=== PATIENT | male | born 1945 | race Caucasian/White ===

== ENCOUNTER 2016-10-29 07:27 | Day surgery (SDC) | payer MEDICARE, OTHER ==
[2016-10-29] MEDS ORDERED: Lactated Ringers 1,000 ML IV SCH (08:45)
[2016-10-29] MEDS ORDERED: Lidocaine 2% 100 MG/5 ML Syringe IVPUSH ONE (10:00)
[2016-10-29] MEDS ORDERED: Propofol 200 MG/20 ML SDV IV ONE (10:00)
[2016-10-29] MEDS ORDERED: Midazolam 1 MG/ML 2 ML SDV IV ONE (10:00)
--- NOTE | 2016-10-29 11:04 | PCM.OPNOTE ---
- General Post-Op/Procedure Note Date of Surgery/Procedure: 10/29/16 Operative Procedure(s): c scope with hot loop and cold forcep biopsy Findings: polyps asc. colon x1 distal asc. colon x4 area marked. t. colon x2 desc. colon x3 rectum x 2 Pre Op Diagnosis: hx of diverticulitis Post-Op Diagnosis: polyps. asc. colon x1. distal asc. colon x4 area marked. t. colon x2. desc. colon x3. rectum x 2 Anesthesia Technique: MAC Primary Surgeon: Roger Whitmore Anesthesia Provider: Yessenia Marcial Pathology: polyps asc. colon x1 distal asc. colon x4 area marked. t. colon x2 desc. colon x3 rectum x 2 Complications: None Condition: Good Free Text/Narrative:: see dictation
[2016-10-29 12:25] VITALS: BP 156/84
--- NOTE | 2016-10-29 17:02 | OR ---
DATE OF OPERATION: 10/29/2016 SURGEON: Roger Whitmore MD PROCEDURE PERFORMED: Colonoscopy with cold forceps and hot loop snare biopsy. PREOPERATIVE DIAGNOSIS: Personal history of diverticulitis. POSTOPERATIVE DIAGNOSIS: Multiple colon polyps as follows: 1. Proximal ascending colon x1. 2. Distal colon ascending colon x3. 3. Transverse colon x2. 4. Descending colon x3. 5. Rectal polyp x2. INDICATIONS FOR PROCEDURE: This is a 71-year-old white male, who is referred with a recent history of diverticulitis. He was offered and accepted colonoscopy. DESCRIPTION OF OPERATION: After an excellent IV sedation was administered by Anesthesia, the patient was placed in left lateral decubitus position. Digital rectal exam was performed, no marked abnormality was noted. The flexible colonoscope was inserted and advanced without difficulty to the cecum. The prep was adequate. There were some areas that we had to irrigate to be able to get an adequate view of the mucosa. The following findings were noted. Ascending colon: Proximal ascending colon, pedunculated polyp biopsied with the hot loop snare and sent for permanent. Distal ascending colon and just before the hepatic flexure: There were some 4 polyps. These were biopsied with a combination of hot loop and cold forceps biopsy. The largest of the polyps was approximately a centimeter and half. This entire area was tattooed to aid in followup examination. Transverse colon: 2 polyps encountered, biopsied with the hot loop snare and sent in one container. Descending colon: Three polyps were encountered. These were biopsied with combination of cold forceps and hot loop snare. Sigmoid: Occasional diverticula. Rectum: Multiple hyperplastic-appearing polyps were encountered, but there were two larger polyps that appeared to be adenomatous and these were biopsied as well. The colon was deflated as the scope was removed. The patient tolerated the procedure well and was taken to recovery in good condition. /[id number] /MODL
== END 2016-10-29 12:30 | disposition home or self-care (01) ==
LOC: FB.SDS 07:27
PROVIDERS: ATTEND Surgery
PROC: 0DBK8ZX Excision of Ascending Colon, Via Natural or Artificial Opening Endoscopic, Diagnostic (ICD-10-PCS; principal; 2016-10-29)
PROC: 0DBL8ZX Excision of Transverse Colon, Via Natural or Artificial Opening Endoscopic, Diagnostic (ICD-10-PCS; 2016-10-29)
PROC: 0DBM8ZX Excision of Descending Colon, Via Natural or Artificial Opening Endoscopic, Diagnostic (ICD-10-PCS; 2016-10-29)
DX: D12.2 Benign neoplasm of ascending colon (principal); D12.4 Benign neoplasm of descending colon; D12.3 Benign neoplasm of transverse colon; M19.90 Unspecified osteoarthritis, unspecified site; K21.9 Gastro-esophageal reflux disease without esophagitis; F17.200 Nicotine dependence, unspecified, uncomplicated; N40.0 Benign prostatic hyperplasia without lower urinary tract symptoms; E66.01 Morbid (severe) obesity due to excess calories; I10 Essential (primary) hypertension; Z68.30 Body mass index [BMI] 30.0-30.9, adult
CPT/HCPCS: 00902; 45385; 88305; J2250; J2704; J7120

== ENCOUNTER 2017-10-03 15:43 | Inpatient (IN) | payer MEDICARE, OTHER ==
[2017-10-03] MEDS: Sodium Chloride 0.9% 10 ML Syringe FLUSH PRN ×2 (17:30→18:49)
[2017-10-03] MEDS ORDERED: Temazepam 7.5 MG Cap PO PRN (17:48)
[2017-10-03] MEDS ORDERED: Docusate Sodium 100 MG Cap PO PRN (17:48)
[2017-10-03] MEDS ORDERED: Acetaminophen 325 MG Tab PO PRN (17:48)
[2017-10-03] MEDS ORDERED: Azithromycin 500 MG Tab PO ONE (17:54)
[2017-10-03] MEDS ORDERED: cefTRIAXone 2 GM in Sodium Chloride 0.9% 100 ML IV SCH (18:00)
--- NOTE | 2017-10-03 18:32 | PCM.HP ---
H&P History of Present Illness - General Date of Service: 10/03/17 Admit Problem/Dx: Admission Diagnosis/Problem Admission Diagnosis/Problem Community acquired pneumonia Source of Information: Patient, Old Records, Provider History Limitations: Reports: No Limitations - History of Present Illness Initial Comments - Free Text/Narative: Patient is a 72-year-old male with underlying COPD and a history of bronchitis and recurrent pneumonias who presented to the clinic today to his primary care provider, Dr. Basurto, with shortness of breath, fever, chills, cough. 3 days ago he started to have fevers chills and a cough. The cough is productive of yellow-brown phlegm. He's been more short of breath with each day. He's not been able to sleep at night. He is not congested but he is very weak in the cough is so bothersome he cannot rest. His abdominal muscles hurt from coughing so much. He was seen at the clinic today and was found to have bibasilar infiltrates on chest x-ray and was asked to admit the patient for treatment for bilateral pneumonia. He has not had any antibiotic therapy for almost 6 months. Last antibiotic was Augmentin in 05/06 and 10/04. Prior to that he hasn't been treated with oral antibiotics since 2016. No recent history of steroid use in the last 12 months. Vital signs at the clinic showed hypoxia with O2 sats in the mid 80s on room air. On his arrival here he was at 92% on room air. Influenza was negative at the clinic. White count 8.4, hemoglobin 14.7, platelets 232, sodium low at 1:30, potassium 4.4, chloride 96, CO2 22, BUN 29, creatinine 1.18. Glucose 107. Past medical history: #1 hypertension #2 emphysema/bronchitis/recurrent pneumonia with question of right lung lesion noted in [facility] EMR. #3 Morbid obesity #4 History of alcohol abuse which patient denies. #5 Cervical spine stenosis #6 Gastroesophageal reflux disease #7 BPH #8 Arthritis #9 DISH (diffuse idiopathic skeletal hyperstosis) Social history: Patient drinks 5 cans a day of beer but hasn't had anything to drink this week. He's been 5 days without drinking. No symptoms of withdrawal per patient report. He smokes one half pack of cigarettes per day. Hasn't had any cigarettes for 2 days. Is a retired construction electrician and is and lives with his in [place]. Family history: Mother at 88 from some type of cancer which required pelvic radiation and damaged her bowels so she was unable to eat. Patient's father of myocardial infarction at the age of 75. The patient had 6 brothers. One in his sleep. The other 5 are healthy. 3 healthy sisters. Abdomen Pain Score (Numeric/FACES): 8 - Related Data Allergies/Adverse Reactions: Allergies Allergy/AdvReac Type Severity Reaction Status Date / Time No Known Allergies Allergy Verified 10/03/17 17:05 Home Medications: Home Meds Albuterol [Ventolin HFA] 2 puff PO Q4H PRN 10/28/16 [History] Ibuprofen [Motrin] 400 mg PO QID PRN 10/28/16 [History] Past Medical History Cardiovascular History: Reports: Hypertension, SOB on Exertion Respiratory History: Reports: Pneumonia, Recurrent Other Respiratory History: EMPHYSEMA WITH CHRONIC BRONCHITIS, RECURRENT PNEUMONIA,SMOKING GREATER THAN 40 YRS,LESIO OF RIGHT LUNG Gastrointestinal History: Reports: Diverticulosis, GERD Other Gastrointestinal History: HX DIVERTICULITIS Genitourinary History: Reports: BPH Musculoskeletal History: Reports: Back Pain, Chronic Other Musculoskeletal History: DEGENERATIVE DISC DISEASE Neurological History: Reports: Other (See Below) Other Neuro History: little forgetful Psychiatric History: Reports: Depression, Mood Swings Other Psychiatric History: ALCOHOL ABUSE Endocrine/Metabolic History: Reports: Obesity/BMI 30+, Other (See Below) Other Endocrine/Metabolic History: enlarged thyroid Other Dermatologic History: HEMATOMA OF ABDOMINAL WALL - Past Surgical History Other HEENT Surgeries/Procedures: BIOPSY VOCAL CORDS Respiratory Surgical History: Reports: None GI Surgical History: Reports: Colonoscopy Other Male Surgeries/Procedures: BPH Endocrine Surgical History: Reports: None Social & Family History - Family History Family Medical History: Noncontributory - Tobacco Use Smoking Status *Q: Current Every Day Smoker Years of Tobacco use: 55 Packs/Tins Daily: 15 Second Hand Smoke Exposure: No - Caffeine Use Caffeine Use: Reports: Coffee Other Caffeine Use: 2 cups - Alcohol Use Days Per Week of Alcohol Use: 7 Number of Drinks Per Day: 3 Total Drinks Per Week: 21 Date of Last Drink: 10/01/17 - Recreational Drug Use Recreational Drug Use: No H&P Review of Systems - Review of Systems: Review Of Systems: See Below General: Reports: Fever, Chills, Weakness, Fatigue, Night Sweats, Decreased Appetite HEENT: Reports: No Symptoms Pulmonary: Reports: Shortness of Breath, Cough Cardiovascular: Reports: Dyspnea on Exertion Gastrointestinal: Reports: Abdominal Pain (muscles hurt from coughing.) Genitourinary: Reports: No Symptoms Musculoskeletal: Reports: No Symptoms Skin: Reports: No Symptoms Psychiatric: Reports: No Symptoms Exam - Exam Exam: See Below - Vital Signs Vital Signs: Last Vital Signs Temp 37.3 C 10/03/17 16:00 Pulse Resp 36 H 10/03/17 16:00 BP 102/70 10/03/17 16:00 Pulse Ox 92 L 10/03/17 16:00 Weight: 105.885 kg - Exam Quality Assessment: Supplemental Oxygen General: Alert, Oriented, Cooperative HEENT: PERRLA, Posterior Pharynx Clear Neck: Supple, Trachea Midline Lungs: Rhonchi (no wheezing) Cardiovascular: Regular Rate, Regular Rhythm, Normal S1, Normal S2 GI/Abdominal Exam: Normal Bowel Sounds, Soft (diffusely tender but no masses, no rebound, no guarding.) Extremities: Normal Inspection, No Pedal Edema Neuro Extensive - Mental Status: Alert, Oriented x3, Normal Cognition - Patient Data Lab Results Last 24 hrs: See above. Imaging Impressions Last 24 hrs: Chest x-ray from the clinic showed bibasilar pleural-parenchymal changes compatible with pneumonia and pleuritis appearing more severe on the right than left. Probable ASHD, COPD, rheumatoid spondylitis/DJD thoracic spine with minimal scoliosis. *Q Meaningful Use (ADM) - VTE *Q VTE Criteria *Q: - Stroke *Q Stroke Criteria *Q: - AMI *Q AMI Criteria *Q: - Problem List (1) CAP (community acquired pneumonia) SNOMED Code(s): 956332366 ICD Code: J18.9 - PNEUMONIA, UNSPECIFIED ORGANISM Status: Acute Current Visit: Yes Problem Details: We'll cover with Rocephin and azithromycin. Duonebs and supplemental oxygen. Repeat x-ray in the morning. (2) HTN (hypertension) SNOMED Code(s): 94180398 ICD Code: I10 - ESSENTIAL (PRIMARY) HYPERTENSION Status: Acute Current Visit: Yes Problem Details: Patient's blood pressure is currently borderline. I'm going to hold his antihypertensives until we see his blood pressure come up. (3) Dehydration with hyponatremia SNOMED Code(s): 54951192 ICD Code: E87.1 - HYPO-OSMOLALITY AND HYPONATREMIA Status: Acute Current Visit: Yes Problem Details: We will do a gentle normal saline rehydration. Recheck labs in a.m. (4) DVT prophylaxis SNOMED Code(s): 227430084 ICD Code: SGR9306 - Status: Acute Current Visit: Yes Problem Details: Subcutaneous Lovenox. (5) Tobacco abuse SNOMED Code(s): 002022498 ICD Code: Z72.0 - TOBACCO USE Status: Acute Current Visit: Yes Problem Details: Tobacco replacement as needed. Encourage smoking cessation. (6) Alcohol abuse SNOMED Code(s): 64166637 ICD Code: F10.10 - ALCOHOL ABUSE, UNCOMPLICATED Status: Acute Current Visit: Yes Problem Details: Monitor for signs of withdrawal. Patient has no tremors at this time and is 5 days out from his last drink per his report. Monitor. Problem List Initiated/Reviewed/Updated: Yes Orders Last 24hrs: Active Orders 24 hr Category Date Time Status Patient Status [ADT] Routine ADT 10/03/17 17:48 Active Anticoag Warfarin Education *Q [RC] DAILY Care 10/03/17 17:48 Active Height and Weight [RC] DAILY Care 10/03/17 17:48 Active Intake and Output [RC] QSHIFT Care 10/03/17 17:48 Active Notify Provider Vital Signs [RC] ASDIRECTED Care 10/03/17 17:49 Active Oxygen Therapy [RC] PRN Care 10/03/17 17:48 Active Pulse Oximetry [RC] PRN Care 10/03/17 17:49 Active RT Aerosol Therapy [RC] ASDIRECTED Care 10/03/17 17:52 Active Up With Assistance [RC] ASDIRECTED Care 10/03/17 17:48 Active VTE/DVT Education [RC] Per Unit Routine Care 10/03/17 17:48 Active Vital Signs [RC] Q4H Care 10/03/17 17:48 Active Consistent Carbohydrate Diet [DIET] Diet 10/03/17 Dinner Active Chest 1V Frontal [CR] AM Exams 10/04/17 05:11 Ordered CBC WITH AUTO DIFF [HEME] AM Lab 10/04/17 05:11 Ordered CBC WITH AUTO DIFF [HEME] Stat Lab 10/03/17 17:48 Ordered COMPREHENSIVE METABOLIC PN,CMP [CHEM] AM Lab 10/04/17 05:11 Ordered COMPREHENSIVE METABOLIC PN,CMP [CHEM] Stat Lab 10/03/17 17:48 Ordered CULTURE SPUTUM + SMEAR [RM] Stat Lab 10/03/17 17:48 Ordered Acetaminophen [Tylenol] Med 10/03/17 17:48 Active 650 mg PO Q4H PRN Albuterol/Ipratropium [DuoNeb 3.0-0.5 MG/3 ML] Med 10/03/17 21:00 Active 3 ml NEB QIDRT Azithromycin [Zithromax] Med 10/04/17 09:00 Active 250 mg PO DAILY Docusate Sodium [Colace] Med 10/03/17 17:48 Active 100 mg PO BID PRN Enoxaparin [Lovenox] Med 10/03/17 18:00 Ordered 30 mg SUBCUT Q24H Sodium Chloride 0.9% @ 75 MLS/HR(1000ml) Med 10/03/17 18:30 Ordered Sodium Chloride 0.9% [Normal Saline] 1,000 ml IV ASDIRECTED Sodium Chloride 0.9% [Saline Flush] Med 10/03/17 17:48 Active 10 ml FLUSH ASDIRECTED PRN Temazepam [Restoril] Med 10/03/17 17:48 Active 7.5 mg PO BEDTIME PRN cefTRIAXone [Rocephin] Med 10/03/17 18:30 Active 2 gm IV Q24H Antiembolic Hose [OM.PC] Per Unit Routine Oth 10/03/17 17:49 Ordered Peripheral IV Insertion Adult [OM.PC] Routine Oth 10/03/17 17:48 Ordered Sequential Compression Device [OM.PC] Per Unit Routine Oth 10/03/17 17:49 Ordered Medication Orders Acetaminophen (Tylenol) 650 mg PO Q4H PRN PRN Reason: Pain (Mild 1-3)/fever Albuterol/Ipratropium (Duoneb 3.0-0.5 Mg/3 Ml) 3 ml NEB QIDRT AMBAR Azithromycin (Zithromax) 250 mg PO DAILY AMBAR Ceftriaxone Sodium (Rocephin) 2 gm IV Q24H AMBAR Docusate Sodium (Colace) 100 mg PO BID PRN PRN Reason: Constipation Enoxaparin Sodium (Lovenox) 30 mg SUBCUT Q24H AMBAR Sodium Chloride (Normal Saline) 1,000 mls @ 75 mls/hr IV ASDIRECTED AMBAR Sodium Chloride (Saline Flush) 10 ml FLUSH ASDIRECTED PRN PRN Reason: Keep Vein Open Temazepam (Restoril) 7.5 mg PO BEDTIME PRN PRN Reason: Sleep Assessment/Plan Comment:: Discussed CODE STATUS with the patient. Patient wants everything done including CPR, shocks, chest compressions, if his heart stops beating or he would stop breathing. He would want intubation. The patient is a full code.
[2017-10-03] MEDS ORDERED: Nicotine Polacrilex 2 MG Loz BUCCAL PRN (18:40)
[2017-10-03] MEDS: cefTRIAXone 2 GM Vial IV SCH (18:49)
[2017-10-03] MEDS: Sodium Chloride 0.9% 1,000 ML IV SCH (19:12)
[2017-10-03] MEDS: Albuterol/Ipratropium 3.0-0.5 MG/3 ML Neb Soln NEB SCH (21:22)
[2017-10-03] MEDS: Enoxaparin 40 MG/0.4 ML Syringe SUBCUT SCH (21:26)
[2017-10-04] MEDS: Albuterol/Ipratropium 3.0-0.5 MG/3 ML Neb Soln NEB SCH ×4 (07:05→20:34)
[2017-10-04] MEDS: Sodium Chloride 0.9% 1,000 ML IV SCH (08:53)
[2017-10-04] MEDS: Azithromycin 250 MG Tab PO SCH (09:35)
[2017-10-04] MEDS ORDERED: Nicotine Polacrilex 2 MG Loz Box BUCCAL PRN ×2 (10:00)
--- NOTE | 2017-10-04 12:29 | PCM.PN ---
- General Info Date of Service: 10/04/17 Subjective Update: Patient is a 72-year-old male currently on hospital day #2 for community- acquired pneumonia. He feels somewhat improved. He slept until about midnight and then had a very rough night after the coughing and being awake. He is tired now and would like to take a nap. Feels his shortness of breath is about the same as yesterday. He's been coughing up a lot of phlegm. No chest pain other than with coughing. Abdominal pain with coughing as well. Still quite short of breath with exertion. Was off oxygen for a little while last night but now back on at 2 L 99% on this. - Patient Data Vitals - Most Recent: Last Vital Signs Temp 36.8 C 10/04/17 09:00 Pulse 86 10/04/17 11:07 Resp 18 10/04/17 09:00 BP 135/78 10/04/17 09:00 Pulse Ox 98 10/04/17 11:07 Weight - Most Recent: 106.594 kg I&O - Last 24 Hours: Intake & Output 10/03/17 10/04/17 10/04/17 22:59 06:59 14:59 Intake Total 1409 560 Output Total 600 700 Balance 809 -140 Lab Results Last 24 Hours: Laboratory Results - last 24 hr 10/04/17 10/04/17 Range/Units 06:15 06:15 WBC 13.9 H (4.5-12.0) X10-3/uL RBC 4.38 (4.30-5.75) x10(6)uL Hgb 13.5 (11.5-15.5) g/dL Hct 39.5 (30.0-51.3) % MCV 90.3 (80-96) fL MCH 30.8 (27.7-33.6) pg MCHC 34.1 (32.2-35.4) g/dL RDW 12.4 (11.5-15.5) % Plt Count 217 (125-369) X10(3)uL MPV 8.4 (7.4-10.4) fL Neut % (Auto) 92.4 H (46-82) % Lymph % (Auto) 4.4 L (13-37) % [place] % (Auto) 3.1 L (4-12) % Eos % (Auto) 0 L (1.0-5.0) % Baso % (Auto) 0 (0-2) % Neut # (Auto) 12.9 H (1.6-8.3) # Lymph # (Auto) 0.6 (0.6-5.0) # [place] # (Auto) 0.4 (0.0-1.3) # Eos # (Auto) 0.0 (0.0-0.8) # Baso # (Auto) 0.0 (0.0-0.2) # Sodium 132 L (135-145) mmol/L Potassium 3.9 (3.5-5.3) mmol/L Chloride 96 L (100-110) mmol/L Carbon Dioxide 27 (21-32) mmol/L BUN 30 H (7-18) mg/dL Creatinine 1.1 (0.70-1.30) mg/dL Est Cr Clr Drug Dosing 65.60 mL/min Estimated GFR (MDRD) > 60 (>60) BUN/Creatinine Ratio 27.3 H (9-20) Glucose 116 (80-116) mg/dL Calcium 8.3 L (8.6-10.2) mg/dL Total Bilirubin 0.9 (0.1-1.3) mg/dL AST 52 H (5-25) IU/L ALT 28 (12-36) U/L Alkaline Phosphatase 36 L (56-112) IU/L Total Protein 6.2 (6.0-8.0) g/dL Albumin 2.5 L (3.2-4.6) g/dL Globulin 3.7 g/dL Albumin/Globulin Ratio 0.7 Med Orders - Current: Current Medications Acetaminophen (Tylenol) 650 mg PO Q4H PRN PRN Reason: Pain (Mild 1-3)/fever Last Admin: 10/03/17 19:04 Dose: 650 mg Albuterol/Ipratropium (Duoneb 3.0-0.5 Mg/3 Ml) 3 ml NEB QIDRT [facility] Last Admin: 10/04/17 10:53 Dose: 3 ml Azithromycin (Zithromax) 250 mg PO DAILY [facility] Last Admin: 10/04/17 09:35 Dose: 250 mg Ceftriaxone Sodium (Rocephin) 2 gm IV Q24H [facility] Last Admin: 10/03/17 18:49 Dose: 2 gm Docusate Sodium (Colace) 100 mg PO BID PRN PRN Reason: Constipation Enoxaparin Sodium (Lovenox) 40 mg SUBCUT Q24H [facility] Last Admin: 10/03/17 21:26 Dose: 40 mg Sodium Chloride (Normal Saline) 1,000 mls @ 75 mls/hr IV ASDIRECTED [facility] Last Admin: 10/04/17 08:53 Dose: 75 mls/hr Melatonin (Melatonin) 3 mg PO BEDTIME [facility] Nicotine Polacrilex (Commit) 2 mg BUCCAL Q1H PRN PRN Reason: Withdrawal Symptoms Sodium Chloride (Saline Flush) 10 ml FLUSH ASDIRECTED PRN PRN Reason: Keep Vein Open Last Admin: 10/03/17 18:49 Dose: 10 ml Temazepam (Restoril) 7.5 mg PO BEDTIME PRN PRN Reason: Sleep Last Admin: 10/03/17 21:24 Dose: 7.5 mg Discontinued Medications Azithromycin (Zithromax) 500 mg PO ONETIME ONE Stop: 10/03/17 17:55 Last Admin: 10/03/17 18:48 Dose: 500 mg Ceftriaxone Sodium 2 gm/ (Sodium Chloride) 100 mls @ 200 mls/hr IV Q24H [facility] Last Admin: 10/03/17 20:39 Dose: Not Given Nicotine Polacrilex (Commit) 2 mg BUCCAL Q1H PRN PRN Reason: Withdrawal Symptoms Nicotine Polacrilex (Commit) 2 mg BUCCAL Q1H PRN PRN Reason: Withdrawal Symptoms - Exam General: Alert, Oriented, Cooperative, Mild Distress (Mild respiratory distress with activity. He becomes quite tachypneic and needs to stop and catch his breath.) Lungs: Clear to Auscultation (Lungs are much clearer to auscultation today. He has a slight grown on the left anteriorly and posteriorly. No crackles. Rhonchi from yesterday are significantly cleared. No wheezing.) Cardiovascular: Regular Rate, Regular Rhythm, No Murmurs GI/Abdominal Exam: Normal Bowel Sounds, Soft Back Exam: Normal Inspection Extremities: Normal Inspection, No Pedal Edema Skin: Warm, Dry, Intact, Other (Yesterday, on admission, he had some puffiness around the eyes and was very plethoric in the face. This is improved considerably.) Psy/Mental Status: Alert, Normal Affect - Problem List & Annotations (1) CAP (community acquired pneumonia) SNOMED Code(s): 284057764 Code(s): J18.9 - PNEUMONIA, UNSPECIFIED ORGANISM Status: Acute Current Visit: Yes Annotation/Comment:: Chest x-ray when compared to yesterday's checks x-ray shows no change. Official reading is still pending for today's. On Rocephin and azithromycin. Continue duo nebs and supplemental oxygen as needed. White count is up to 13.9 today from 8.4 yesterday. The patient is not being treated with any steroids. Low threshold for adding further antibiotic coverage. (2) HTN (hypertension) SNOMED Code(s): 06179726 Code(s): I10 - ESSENTIAL (PRIMARY) HYPERTENSION Status: Acute Current Visit: Yes Annotation/Comment:: Blood pressure is currently 110s over 70s. Continue to hold blood pressure medication. (3) Dehydration with hyponatremia SNOMED Code(s): 99471083 Code(s): E87.1 - HYPO-OSMOLALITY AND HYPONATREMIA Status: Acute Current Visit: Yes Annotation/Comment:: Labs have improved with sodium 132, BUN 30, creatinine 1.1. Lock fluids as patient is taking good oral intake. (4) DVT prophylaxis SNOMED Code(s): 331140740 Code(s): LDM8954 - Status: Acute Current Visit: Yes Annotation/Comment :: Subcutaneous Lovenox. (5) Tobacco abuse SNOMED Code(s): 372432856 Code(s): Z72.0 - TOBACCO USE Status: Acute Current Visit: Yes Annotation/Comment:: Tobacco replacement as needed. Encourage smoking cessation. (6) Alcohol abuse SNOMED Code(s): 56556603 Code(s): F10.10 - ALCOHOL ABUSE, UNCOMPLICATED Status: Acute Current Visit: Yes Annotation/Comment:: Monitor for signs of withdrawal. None currently. - Problem List Review Problem List Initiated/Reviewed/Updated: Yes - My Orders Last 24 Hours: My Active Orders 10/03/17 17:48 Patient Status [ADT] Routine Anticoag Warfarin Education *Q [RC] DAILY Height and Weight [RC] DAILY Intake and Output [RC] QSHIFT Oxygen Therapy [RC] PRN Up With Assistance [RC] ASDIRECTED VTE/DVT Education [RC] Per Unit Routine Vital Signs [RC] Q4H Acetaminophen [Tylenol] 650 mg PO Q4H PRN Docusate Sodium [Colace] 100 mg PO BID PRN Sodium Chloride 0.9% [Saline Flush] 10 ml FLUSH ASDIRECTED PRN Temazepam [Restoril] 7.5 mg PO BEDTIME PRN Peripheral IV Insertion Adult [OM.PC] Routine 10/03/17 17:49 Notify Provider Vital Signs [RC] ASDIRECTED Pulse Oximetry [RC] PRN Antiembolic Hose [OM.PC] Per Unit Routine Sequential Compression Device [OM.PC] Per Unit Routine 10/03/17 17:52 RT Aerosol Therapy [RC] ASDIRECTED 10/03/17 18:30 Sodium Chloride 0.9% [Normal Saline] 1,000 ml IV ASDIRECTED cefTRIAXone [Rocephin] 2 gm IV Q24H 10/03/17 18:40 Code Status [Resuscitation Status] Routine 10/03/17 19:20 CULTURE SPUTUM + SMEAR [RM] Stat 10/03/17 21:00 Albuterol/Ipratropium [DuoNeb 3.0-0.5 MG/3 ML] 3 ml NEB QIDRT Enoxaparin [Lovenox] 40 mg SUBCUT Q24H 10/03/17 Dinner Consistent Carbohydrate Diet [DIET] 10/04/17 05:11 Chest 2V [CR] Routine 10/04/17 07:12 IS (RT) [RT Incentive Spirometry] [RC] ASDIRECTED 10/04/17 09:00 Azithromycin [Zithromax] 250 mg PO DAILY 10/04/17 10:00 Nicotine Polacrilex [Commit] 2 mg BUCCAL Q1H PRN 10/04/17 21:00 Melatonin 3 mg PO BEDTIME - Plan Plan:: Discussed CODE STATUS with the patient. Patient wants everything done including CPR, shocks, chest compressions, if his heart stops beating or he would stop breathing. He would want intubation. The patient is a full code.
[2017-10-04] MEDS: cefTRIAXone 2 GM Vial IV SCH (18:13)
[2017-10-04] MEDS: Sodium Chloride 0.9% 10 ML Syringe FLUSH PRN (18:14)
[2017-10-04] MEDS: Melatonin 3 MG Tab PO SCH (20:35)
[2017-10-04] MEDS: Enoxaparin 40 MG/0.4 ML Syringe SUBCUT SCH (20:35)
[2017-10-05] MEDS: Albuterol/Ipratropium 3.0-0.5 MG/3 ML Neb Soln NEB SCH ×4 (07:04→20:18)
[2017-10-05] MEDS: Azithromycin 250 MG Tab PO SCH (08:58)
[2017-10-05] MEDS ORDERED: Zolpidem 5 MG Tab PO PRN (11:39)
--- NOTE | 2017-10-05 13:44 | PCM.PN ---
- General Info Date of Service: 10/05/17 Subjective Update: Patient appears significantly improved today. He's been off oxygen for most of the time overnight and this morning. Tachypnea has resolved. Sputum is clearing. He still slept very poorly last night. Would like to try another sleep aid as the melatonin did not help. No chest pain except with coughing, no abdominal pain except with coughing, no dizziness. Shortness of breath is much improved. No diarrhea. - Patient Data Vitals - Most Recent: Last Vital Signs Temp 36.8 C 10/05/17 12:00 Pulse 86 10/05/17 12:00 Resp 18 10/05/17 12:00 BP 118/78 10/05/17 12:00 Pulse Ox 96 10/05/17 12:00 Weight - Most Recent: 106.322 kg I&O - Last 24 Hours: Intake & Output 10/04/17 10/05/17 10/05/17 22:59 06:59 14:59 Intake Total 440 Output Total 850 600 Balance -850 -600 440 Lance Results Last 24 Hours: Microbiology 10/03/17 19:20 Gram Stain - Final Sputum - Expectorated Sputum Culture - Final YEAST Med Orders - Current: Current Medications Acetaminophen (Tylenol) 650 mg PO Q4H PRN PRN Reason: Pain (Mild 1-3)/fever Last Admin: 10/03/17 19:04 Dose: 650 mg Albuterol/Ipratropium (Duoneb 3.0-0.5 Mg/3 Ml) 3 ml NEB QIDRT [facility] Last Admin: 10/05/17 10:54 Dose: 3 ml Azithromycin (Zithromax) 250 mg PO DAILY [facility] Last Admin: 10/05/17 08:58 Dose: 250 mg Ceftriaxone Sodium (Rocephin) 2 gm IV Q24H [facility] Last Admin: 10/04/17 18:13 Dose: 2 gm Docusate Sodium (Colace) 100 mg PO BID PRN PRN Reason: Constipation Enoxaparin Sodium (Lovenox) 40 mg SUBCUT Q24H [facility] Last Admin: 10/04/17 20:35 Dose: 40 mg Sodium Chloride (Normal Saline) 1,000 mls @ 75 mls/hr IV ASDIRECTED [facility] Last Admin: 10/04/17 08:53 Dose: 75 mls/hr Melatonin (Melatonin) 3 mg PO BEDTIME [facility] Last Admin: 10/04/17 20:35 Dose: 3 mg Nicotine Polacrilex (Commit) 2 mg BUCCAL Q1H PRN PRN Reason: Withdrawal Symptoms Sodium Chloride (Saline Flush) 10 ml FLUSH ASDIRECTED PRN PRN Reason: Keep Vein Open Last Admin: 10/04/17 18:14 Dose: 10 ml Temazepam (Restoril) 7.5 mg PO BEDTIME PRN PRN Reason: Sleep Last Admin: 10/03/17 21:24 Dose: 7.5 mg Zolpidem Tartrate (Ambien) 5 mg PO BEDTIME PRN PRN Reason: Insomnia Discontinued Medications Azithromycin (Zithromax) 500 mg PO ONETIME ONE Stop: 10/03/17 17:55 Last Admin: 10/03/17 18:48 Dose: 500 mg Ceftriaxone Sodium 2 gm/ (Sodium Chloride) 100 mls @ 200 mls/hr IV Q24H [facility] Last Admin: 10/03/17 20:39 Dose: Not Given Nicotine Polacrilex (Commit) 2 mg BUCCAL Q1H PRN PRN Reason: Withdrawal Symptoms Nicotine Polacrilex (Commit) 2 mg BUCCAL Q1H PRN PRN Reason: Withdrawal Symptoms - Exam Quality Assessment: Supplemental Oxygen General: Alert, Oriented, Cooperative, No Acute Distress HEENT: Pupils Equal, Pupils Reactive Lungs: Clear to Auscultation (No longer having any rhonchi or groans. Still slightly diminished on the right with occasional fine crackles.) Cardiovascular: Regular Rate, Regular Rhythm, No Murmurs GI/Abdominal Exam: Normal Bowel Sounds, Soft, Tender (Diffuse muscle tenderness. ) Back Exam: Normal Inspection Extremities: No Pedal Edema Psy/Mental Status: Alert, Normal Affect, Normal Mood - Problem List & Annotations (1) CAP (community acquired pneumonia) SNOMED Code(s): 745913866 Code(s): J18.9 - PNEUMONIA, UNSPECIFIED ORGANISM Status: Acute Current Visit: Yes Annotation/Comment:: Bilateral pneumonia and a COPD patient on hospital day #3. Much improved. Need for supplemental oxygen greatly decreased. On Rocephin and azithromycin. Sputum culture was negative for bacteria, showed some yeast which was likely contaminant. If patient does not require oxygen throughout the day and night, could discharge home tomorrow with return on Friday for his last dose of IM Rocephin. Otherwise should go home on Friday. (2) HTN (hypertension) SNOMED Code(s): 81378608 Code(s): I10 - ESSENTIAL (PRIMARY) HYPERTENSION Status: Acute Current Visit: Yes Annotation/Comment:: Blood pressure is currently 110s over 70s. Continue to hold blood pressure medication. (3) Dehydration with hyponatremia SNOMED Code(s): 09716394 Code(s): E87.1 - HYPO-OSMOLALITY AND HYPONATREMIA Status: Acute Current Visit: Yes Annotation/Comment:: Resolved. (4) DVT prophylaxis SNOMED Code(s): 916353136 Code(s): KLR8140 - Status: Acute Current Visit: Yes Annotation/Comment :: Subcutaneous Lovenox. (5) Tobacco abuse SNOMED Code(s): 592637939 Code(s): Z72.0 - TOBACCO USE Status: Acute Current Visit: Yes Annotation/Comment:: Tobacco replacement as needed. Encourage smoking cessation. (6) Alcohol abuse SNOMED Code(s): 14829260 Code(s): F10.10 - ALCOHOL ABUSE, UNCOMPLICATED Status: Acute Current Visit: Yes Annotation/Comment:: Monitor for signs of withdrawal. None currently. (7) Insomnia SNOMED Code(s): 411153556 Code(s): G47.00 - INSOMNIA, UNSPECIFIED Status: Acute Current Visit: Yes Annotation/Comment:: Patient uses Tylenol PM at home. Discussed that this medication is not recommended for patients greater than 65 due to risk of falls and confusion. Patient tried melatonin last night which was unsuccessful. Recommended Ambien 5 mg tonight. - Problem List Review Problem List Initiated/Reviewed/Updated: Yes - My Orders Last 24 Hours: My Active Orders 10/04/17 21:00 Melatonin 3 mg PO BEDTIME 10/05/17 11:15 Oxygen Therapy [RC] PRN 10/05/17 11:39 Zolpidem [Ambien] 5 mg PO BEDTIME PRN 10/06/17 05:11 BASIC METABOLIC PANEL,BMP [CHEM] AM CBC WITH AUTO DIFF [HEME] AM - Plan Plan:: Discussed CODE STATUS with the patient. Patient wants everything done including CPR, shocks, chest compressions, if his heart stops beating or he would stop breathing. He would want intubation. The patient is a full code.
[2017-10-05] MEDS: Sodium Chloride 0.9% 10 ML Syringe FLUSH PRN (17:26)
[2017-10-05] MEDS: cefTRIAXone 2 GM Vial IV SCH (17:30)
[2017-10-05] MEDS: Enoxaparin 40 MG/0.4 ML Syringe SUBCUT SCH (20:19)
[2017-10-05] MEDS: Melatonin 3 MG Tab PO SCH (21:16)
[2017-10-06] MEDS: Albuterol/Ipratropium 3.0-0.5 MG/3 ML Neb Soln NEB SCH ×2 (07:11→11:05)
[2017-10-06] MEDS: Azithromycin 250 MG Tab PO SCH (08:50)
[2017-10-06 09:15] VITALS: BP 118/68
--- NOTE | 2017-10-06 12:53 | PCM.DCSUM1 ---
Discharge Summary - Hospital Course Free Text/Narrative:: Date of admission: 10/03/17 Date of discharge: 10/06/17 Admission diagnosis: bibasilar pneumonia superimposed on chronic COPD Discharge diagnosis: same History of present illness: Patient is a 72-year-old male who 3 days prior to admission started to have fevers, chills, is cough which was productive for brown yellow sputum. Worsening shortness of breath and finally presented to the emergency department where he was found to have hypoxia secondary to a bibasilar pneumonia and was admitted for supplemental oxygen, Rocephin, azithromycin, and DuoNeb's. Hospital course: See below by problem. Patient did very well throughout hospitalization. Gradually showed improvement in shortness of breath, decreased oxygen needs, improved sputum production with clearing of sputum. Sputum culture grew no bacteria, sparse yeast. On the day of discharge, patient was sitting up and dressed in the room off oxygen feeling well. No chest pain other than with cough, abdominal pain with cough, no nausea or vomiting, no diarrhea. Shortness of breath significantly improved. - Discharge Data Discharge Date: 10/06/17 Discharge Disposition: Home, Self-Care 01 Condition: Good - Discharge Diagnosis/Problem(s) (1) CAP (community acquired pneumonia) SNOMED Code(s): 154926306 ICD Code: J18.9 - PNEUMONIA, UNSPECIFIED ORGANISM Status: Acute Current Visit: Yes Problem Details: Bilateral pneumonia and a COPD patient on hospital day #4. Much improved. Patient would like to go home. He is continuing to need a little supplemental oxygen so we will send him home with oxygen therapy. Will come in tomorrow to get his Rocephin last dose. Follow-up later this week in the clinic with his primary care provider. (2) HTN (hypertension) SNOMED Code(s): 18101782 ICD Code: I10 - ESSENTIAL (PRIMARY) HYPERTENSION Status: Acute Current Visit: Yes Problem Details: Blood pressure has returned to 120s systolic off medication. Since patient isn't smoking, he may no longer require antihypertensives. We will hold until his clinic follow-up. (3) Dehydration with hyponatremia SNOMED Code(s): 38885364 ICD Code: E87.1 - HYPO-OSMOLALITY AND HYPONATREMIA Status: Acute Current Visit: Yes Problem Details: Resolved. (4) DVT prophylaxis SNOMED Code(s): 044183264 ICD Code: [id number] - Status: Acute Current Visit: Yes Problem Details: Subcutaneous Lovenox. (5) Tobacco abuse SNOMED Code(s): 651505050 ICD Code: Z72.0 - TOBACCO USE Status: Acute Current Visit: Yes Problem Details: Tobacco replacement as needed. Encourage smoking cessation. (6) Alcohol abuse SNOMED Code(s): 02334406 ICD Code: F10.10 - ALCOHOL ABUSE, UNCOMPLICATED Status: Acute Current Visit: Yes Problem Details: Recommended no alcohol on return to home until approved by his outpatient doctor. (7) Insomnia SNOMED Code(s): 132954435 ICD Code: G47.00 - INSOMNIA, UNSPECIFIED Status: Acute Current Visit: Yes Problem Details: Patient uses Tylenol PM at home. Discussed that this medication is not recommended for patients greater than 65 due to risk of falls and confusion. Will keep this in mind on discharge. - Patient Instructions Diet: Heart Healthy Diet Diet, Other: No tobacco or alcohol. Other/Special Instructions: Please follow-up with your regular doctor within 1 week. You need to come in for Rocephin injection tomorrow around 1:30 PM. - Discharge Plan Prescriptions/Med Rec: Azithromycin [Zithromax] 250 mg PO DAILY #1 tablet cefTRIAXone [Rocephin] 2 gm IJ DAILY 1 Days #1 vial Codeine/guaiFENesin [Robitussin AC] 10 ml PO QID PRN #240 liquid PRN Reason: Cough Home Medications: Home Meds Albuterol [Ventolin HFA] 2 puff PO Q4H PRN 10/28/16 [History] Aspirin 500 mg PO DAILY PRN 10/04/17 [History] Azithromycin [Zithromax] 250 mg PO DAILY #1 tablet 10/06/17 [Rx] Codeine/guaiFENesin [Robitussin AC] 10 ml PO QID PRN #240 liquid 10/06/17 [Rx] Nicotine Polacrilex [Commit] 2 mg BUCCAL Q1H PRN jos 10/06/17 [Rx] cefTRIAXone [Rocephin] 2 gm IJ DAILY 1 Days #1 vial 10/06/17 [Rx] Patient Handouts: Fall Prevention in Hospitals, Adult, Community-Acquired Pneumonia, Adult, [id number] - Discharge Summary/Plan Comment DC Time >30 min.: Yes - Patient Data Vitals - Most Recent: Last Vital Signs Temp 36.8 C 10/06/17 08:00 Pulse 76 10/06/17 11:05 Resp 18 10/06/17 08:00 BP 118/68 10/06/17 08:00 Pulse Ox 90 L 10/06/17 11:05 Weight - Most Recent: 106.594 kg I&O - Last 24 hours: Intake & Output 10/05/17 10/06/17 10/06/17 22:59 06:59 14:59 Output Total 1000 Balance -1000 Lab Results - Last 24 hrs: Laboratory Results - last 24 hr 10/06/17 10/06/17 Range/Units 06:25 06:25 WBC 9.1 (4.5-12.0) X10-3/uL RBC 4.31 (4.30-5.75) x10(6)uL Hgb 12.9 (11.5-15.5) g/dL Hct 38.7 (30.0-51.3) % MCV 89.6 (80-96) fL MCH 30.0 (27.7-33.6) pg MCHC 33.5 (32.2-35.4) g/dL RDW 13.0 (11.5-15.5) % Plt Count 261 (125-369) X10(3)uL MPV 8.8 (7.4-10.4) fL Add Manual Diff Yes Neutrophils % (Manual) 80 (46-82) % Band Neutrophils % 1 (0-6) % Lymphocytes % (Manual) 12 L (13-37) % Monocytes % (Manual) 3 L (4-12) % Eosinophils % (Manual) 4 (0-5) % Sodium 134 L (135-145) mmol/L Potassium 3.5 (3.5-5.3) mmol/L Chloride 98 L (100-110) mmol/L Carbon Dioxide 29 (21-32) mmol/L BUN 18 D (7-18) mg/dL Creatinine 0.8 (0.70-1.30) mg/dL Est Cr Clr Drug Dosing 90.20 mL/min Estimated GFR (MDRD) > 60 (>60) BUN/Creatinine Ratio 22.5 H (9-20) Glucose 111 (80-116) mg/dL Calcium 8.8 (8.6-10.2) mg/dL GIANFRANCO Results - Last 24 hrs: Microbiology 10/03/17 19:20 Gram Stain - Final Sputum - Expectorated Sputum Culture - Final YEAST Med Orders - Current: Current Medications Acetaminophen (Tylenol) 650 mg PO Q4H PRN PRN Reason: Pain (Mild 1-3)/fever Last Admin: 10/03/17 19:04 Dose: 650 mg Albuterol/Ipratropium (Duoneb 3.0-0.5 Mg/3 Ml) 3 ml NEB QIDRT [facility] Last Admin: 10/06/17 11:05 Dose: 3 ml Azithromycin (Zithromax) 250 mg PO DAILY [facility] Last Admin: 10/06/17 08:50 Dose: 250 mg Ceftriaxone Sodium (Rocephin) 2 gm IV Q24H [facility] Docusate Sodium (Colace) 100 mg PO BID PRN PRN Reason: Constipation Enoxaparin Sodium (Lovenox) 40 mg SUBCUT Q24H [facility] Last Admin: 10/05/17 20:19 Dose: 40 mg Sodium Chloride (Normal Saline) 1,000 mls @ 75 mls/hr IV ASDIRECTED [facility] Last Admin: 10/04/17 08:53 Dose: 75 mls/hr Melatonin (Melatonin) 3 mg PO BEDTIME [facility] Last Admin: 10/05/17 21:16 Dose: 3 mg Nicotine Polacrilex (Commit) 2 mg BUCCAL Q1H PRN PRN Reason: Withdrawal Symptoms Sodium Chloride (Saline Flush) 10 ml FLUSH ASDIRECTED PRN PRN Reason: Keep Vein Open Last Admin: 10/05/17 17:26 Dose: 10 ml Temazepam (Restoril) 7.5 mg PO BEDTIME PRN PRN Reason: Sleep Last Admin: 10/03/17 21:24 Dose: 7.5 mg Zolpidem Tartrate (Ambien) 5 mg PO BEDTIME PRN PRN Reason: Insomnia Last Admin: 10/06/17 00:30 Dose: 5 mg Discontinued Medications Azithromycin (Zithromax) 500 mg PO ONETIME ONE Stop: 10/03/17 17:55 Last Admin: 10/03/17 18:48 Dose: 500 mg Ceftriaxone Sodium (Rocephin) 2 gm IV Q24H [facility] Last Admin: 10/05/17 17:30 Dose: 2 gm Ceftriaxone Sodium 2 gm/ (Sodium Chloride) 100 mls @ 200 mls/hr IV Q24H [facility] Last Admin: 10/03/17 20:39 Dose: Not Given Nicotine Polacrilex (Commit) 2 mg BUCCAL Q1H PRN PRN Reason: Withdrawal Symptoms Nicotine Polacrilex (Commit) 2 mg BUCCAL Q1H PRN PRN Reason: Withdrawal Symptoms - Exam General: Reports: Alert, Oriented, Cooperative HEENT: Reports: Pupils Equal, Pupils Reactive Neck: Reports: Supple Lungs: Reports: Clear to Auscultation, Normal Respiratory Effort Cardiovascular: Reports: Regular Rate, Regular Rhythm, No Murmurs GI/Abdominal Exam: Normal Bowel Sounds, Soft, Non-Tender Back Exam: Reports: Normal Inspection Extremities: Normal Inspection, No Pedal Edema Skin: Reports: Warm, Dry, Intact Psy/Mental Status: Reports: Alert, Normal Affect, Normal Mood *Q Meaningful Use (DIS) - VTE *Q VTE Criteria *Q: - Stroke *Q Stroke Criteria *Q: - AMI *Q AMI Criteria *Q:
[2017-10-06] MEDS ORDERED: cefTRIAXone 2 GM Vial IV SCH (13:30)
--- NOTE | 2017-10-06 15:18 | CR ---
INDICATION: Hypoxia, shortness of breath. CHEST: PA and lateral views of the chest 10/04/2017 were compared with clinic films from 10/03/2017, and again reveal bibasilar pleuroparenchymal changes, compatible with pneumonia and pleuritis. Other etiology such as pulmonary infarction or even neoplasia cannot be entirely excluded. Findings should therefore be correlated clinically. The heart is enlarged. The aorta is calcified minimally in the arch. Diminished bone density is noted, compatible with osteoporosis, but should be correlated clinically. Calcification of the anterior longitudinal ligament is noted at the thoracic spine, suggesting the possibility of rheumatoid spondylitis - correlate clinically. Flattened diaphragm leaves, prominent AP diameter, and hyperaeration all suggest COPD. IMPRESSION: 1. Continued bibasilar pleuroparenchymal changes, which may be on the basis of pneumonia and pleuritis - correlate clinically. 2. COPD. 3. ASHD with cardiomegaly. 4. 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 MTDD
== END 2017-10-06 13:55 | disposition home or self-care (01) | DRG 194 ==
LOC: FB.MS 15:43
PROVIDERS: ADMIT Family Medicine; ATTEND Family Medicine
DX: J18.9 Pneumonia, unspecified organism (principal); E87.1 Hypo-osmolality and hyponatremia; J44.9 Chronic obstructive pulmonary disease, unspecified; E86.0 Dehydration; I10 Essential (primary) hypertension; R09.02 Hypoxemia; G47.00 Insomnia, unspecified; F17.210 Nicotine dependence, cigarettes, uncomplicated; E66.01 Morbid (severe) obesity due to excess calories; Z68.32 Body mass index [BMI] 32.0-32.9, adult; Z87.01 Personal history of pneumonia (recurrent); F10.10 Alcohol abuse, uncomplicated; M54.9 Dorsalgia, unspecified; G89.29 Other chronic pain; Z99.81 Dependence on supplemental oxygen; Z79.82 Long term (current) use of aspirin
CPT/HCPCS: 36415; 71046; 80048; 80053; 85025; 87070; 87205; 94150; 94640; A9270-GY; J0696; J1650; J7040; J7050; J7620

== ENCOUNTER 2017-10-07 11:57 | Inpatient (IN) | payer MEDICARE, OTHER ==
[2017-10-07] MEDS ORDERED: cefTRIAXone 2 GM Vial IM ONE (12:15)
[2017-10-07] MEDS ORDERED: Ondansetron 4 MG Tab.DIS PO PRN (12:48)
[2017-10-07] MEDS ORDERED: Zolpidem 5 MG Tab PO PRN (12:48)
[2017-10-07] MEDS ORDERED: Docusate Sodium 100 MG Cap PO PRN (12:48)
[2017-10-07] MEDS: Piperacillin/Tazobactam 3.375 GM in Sodium Chloride 0.9% 50 ML IV SCH ×2 (13:27→19:42)
[2017-10-07] MEDS: predniSONE 20 MG Tab PO SCH (13:30)
[2017-10-07] MEDS: Enoxaparin 40 MG/0.4 ML Syringe SUBCUT SCH (13:30)
--- NOTE | 2017-10-07 13:32 | PCM.HP ---
H&P History of Present Illness - General Date of Service: 10/07/17 Admit Problem/Dx: Admission Diagnosis/Problem Admission Diagnosis/Problem Community acquired bacterial pneumonia Source of Information: Patient, Old Records, Provider History Limitations: Reports: No Limitations - History of Present Illness Initial Comments - Free Text/Narative: Patient is a 72-year-old male who was discharged yesterday after 4 days of hospitalization for community-acquired pneumonia, treated with Rocephin and a sputum I's and. He was still using when necessary supplemental oxygen at the time of discharge. He refused to have oxygen at home. He was discharged home on azithromycin and to return for his last dose of Rocephin today. He felt pretty good going home until the evening. He tells me he did not have any cigarettes. He did not sleep well. He coughed all night long and just couldn't rest. Started to feel increasingly short of breath. The cough continued to get worse. He came in today to outpatient to have his Rocephin and asked if he could see me and he was so tachypneic and dyspneic and felt so poorly I felt he probably should be readmitted. He notes that he had fevers and chills last night and this morning again. Cough is nonproductive clearish phlegm. See previous H&P and discharge summary for social history, family history, further details as to the last admission. - Related Data Allergies/Adverse Reactions: Allergies Allergy/AdvReac Type Severity Reaction Status Date / Time No Known Allergies Allergy Verified 10/07/17 17:30 Home Medications: Home Meds Albuterol [Ventolin HFA] 2 puff PO Q4H PRN 10/28/16 [History] Aspirin 500 mg PO DAILY PRN 10/04/17 [History] Nicotine Polacrilex [Commit] 2 mg BUCCAL Q1H PRN jos 10/06/17 [Rx] Ibuprofen/Diphenhydramine Cit [Advil Pm Caplet] 1 tab PO BEDTIME PRN 10/07/17 [ History] Past Medical History Cardiovascular History: Reports: Hypertension, SOB on Exertion Respiratory History: Reports: Pneumonia, Recurrent Other Respiratory History: EMPHYSEMA WITH CHRONIC BRONCHITIS, RECURRENT PNEUMONIA,SMOKING GREATER THAN 40 YRS,LESIO OF RIGHT LUNG Gastrointestinal History: Reports: Diverticulosis, GERD Other Gastrointestinal History: HX DIVERTICULITIS Genitourinary History: Reports: BPH Musculoskeletal History: Reports: Back Pain, Chronic Other Musculoskeletal History: DEGENERATIVE DISC DISEASE Neurological History: Reports: Other (See Below) Other Neuro History: little forgetful Psychiatric History: Reports: Depression, Mood Swings Other Psychiatric History: ALCOHOL ABUSE Endocrine/Metabolic History: Reports: Obesity/BMI 30+, Other (See Below) Other Endocrine/Metabolic History: enlarged thyroid Other Dermatologic History: HEMATOMA OF ABDOMINAL WALL - Past Surgical History Other HEENT Surgeries/Procedures: BIOPSY VOCAL CORDS Respiratory Surgical History: Reports: None GI Surgical History: Reports: Colonoscopy Other Male Surgeries/Procedures: BPH Endocrine Surgical History: Reports: None Social & Family History - Family History Family Medical History: Noncontributory - Tobacco Use Smoking Status *Q: Current Every Day Smoker Years of Tobacco use: 55 Packs/Tins Daily: 15 Second Hand Smoke Exposure: No - Caffeine Use Caffeine Use: Reports: Coffee Other Caffeine Use: 2 cups - Alcohol Use Days Per Week of Alcohol Use: 7 Number of Drinks Per Day: 3 Total Drinks Per Week: 21 - Recreational Drug Use Recreational Drug Use: No H&P Review of Systems - Review of Systems: Review Of Systems: ROS reveals no pertinent complaints other than HPI. Exam - Exam Exam: See Below - Exam General: Alert, Oriented, Cooperative, Mild Distress HEENT: PERRLA, Conjunctiva Clear Neck: Supple Lungs: Crackles (right lower lobe, groans on the left. No rhonchi.) Cardiovascular: Normal S1, Normal S2, Irregular Rhythm GI/Abdominal Exam: Normal Bowel Sounds, Soft, Non-Tender, No Distention Extremities: Normal Inspection, No Pedal Edema Psychiatric: Alert, Normal Affect, Normal Mood - Patient Data Result Diagrams: 10/07/17 13:25 10/07/17 13:25 EKG INTERPRETATION EKG Date: 10/07/17 EKG Interpretation Comments: Indication shows atrial fibrillation with controlled rate in the 80s. No ST elevation or depression. No T-wave inversion. In chart review of our [facility] charts and the [facility] chart at the clinic I see no previous EKG for comparison. *Q Meaningful Use (ADM) - VTE *Q VTE Criteria *Q: - Stroke *Q Stroke Criteria *Q: - AMI *Q AMI Criteria *Q: - Problem List (1) CAP (community acquired pneumonia) SNOMED Code(s): 840927973 ICD Code: J18.9 - PNEUMONIA, UNSPECIFIED ORGANISM Status: Acute Current Visit: No Problem Details: Failed discharge. We'll repeat chest x-ray and lab work today. Start steroids and Zosyn IV. Low threshold for chest CT to rule out alternative etiologies. This may simply be because the patient returned to his previous smoking environment without supplemental oxygen but will need further assessment before I can determine that. (2) HTN (hypertension) SNOMED Code(s): 32695734 ICD Code: I10 - ESSENTIAL (PRIMARY) HYPERTENSION Status: Acute Current Visit: No Problem Details: Hold blood pressure meds unless SBP > 130. (3) Insomnia SNOMED Code(s): 775279546 ICD Code: G47.00 - INSOMNIA, UNSPECIFIED Status: Acute Current Visit: No Problem Details: Ambien ordered here. (4) Tobacco abuse SNOMED Code(s): 527497619 ICD Code: Z72.0 - TOBACCO USE Status: Acute Current Visit: No Problem Details: Tobacco replacement as needed. Encourage smoking cessation. (5) Atrial fibrillation SNOMED Code(s): 01497953 ICD Code: I48.91 - UNSPECIFIED ATRIAL FIBRILLATION Status: Acute Current Visit: Yes Problem Details: Unknown if new or old, but suspect old. As it is rate controlled, would suggest anticoagulation with warfarin for stroke prevention, and will start tomorrow. In interim, will continue DVT lovenox. Qualifiers: Atrial fibrillation type: chronic Qualified Code(s): I48.2 - Chronic atrial fibrillation Problem List Initiated/Reviewed/Updated: Yes Orders Last 24hrs: Active Orders 24 hr Category Date Time Status Patient Status [ADT] Routine ADT 10/07/17 12:48 Active EKG Documentation Completion [RC] ASDIRECTED Care 10/07/17 12:52 Active Height and Weight [RC] DAILY Care 10/07/17 12:48 Active Intake and Output [RC] QSHIFT Care 10/07/17 12:49 Active Notify Provider Vital Signs [RC] ASDIRECTED Care 10/07/17 12:50 Active Oxygen Therapy [RC] PRN Care 10/07/17 12:48 Active Pulse Oximetry [RC] PRN Care 10/07/17 12:50 Active RT Aerosol Therapy [RC] ASDIRECTED Care 10/07/17 12:51 Active Up With Assistance [RC] ASDIRECTED Care 10/07/17 12:48 Active VTE/DVT Education [RC] Per Unit Routine Care 10/07/17 12:48 Active Vital Signs [RC] Q4H Care 10/07/17 12:48 Active Respiratory Care Assess and Treatment [CONS] Routine Cons 10/07/17 12:48 Active Consistent Carbohydrate Diet [DIET] Diet 10/07/17 Breakfast Active Chest 2V [CR] Stat Exams 10/07/17 12:48 Taken CBC WITH AUTO DIFF [HEME] AM Lab 10/08/17 05:11 Ordered CBC WITH AUTO DIFF [HEME] Stat Lab 10/07/17 12:48 Ordered COMPREHENSIVE METABOLIC PN,CMP [CHEM] AM Lab 10/08/17 05:11 Ordered COMPREHENSIVE METABOLIC PN,CMP [CHEM] Stat Lab 10/07/17 12:48 Ordered CULTURE BLOOD [BC] Urgent Lab 10/07/17 12:52 Ordered Acetaminophen [Tylenol] Med 10/07/17 12:48 Active 650 mg PO Q4H PRN Albuterol/Ipratropium [DuoNeb 3.0-0.5 MG/3 ML] Med 10/07/17 16:00 Active 3 ml NEB QIDRT Docusate Sodium [Colace] Med 10/07/17 12:48 Active 100 mg PO BID PRN Enoxaparin [Lovenox] Med 10/07/17 14:00 Active 40 mg SUBCUT Q24H Ondansetron [Zofran ODT] Med 10/07/17 12:48 Active 4 mg PO Q4H PRN Piperacillin/Tazobactam [Zosyn] 3.375 gm Med 10/07/17 13:00 Active Sodium Chloride 0.9% [Normal Saline] 50 ml IV Q6H Sodium Chloride 0.9% [Saline Flush] Med 10/07/17 12:48 Active 10 ml FLUSH ASDIRECTED PRN Zolpidem [Ambien] Med 10/07/17 12:48 Active 5 mg PO BEDTIME PRN predniSONE Med 10/07/17 13:00 Active 40 mg PO WITHBREAKFAST Blood Culture x2 Reflex Set [OM.PC] Urgent Oth 10/07/17 12:48 Ordered Peripheral IV Insertion Adult [OM.PC] Routine Oth 10/07/17 12:48 Ordered Sequential Compression Device [OM.PC] Per Unit Routine Oth 10/07/17 12:50 Ordered Resuscitation Status Routine Resus Stat 10/07/17 12:48 Ordered EKG 12 Lead [EK] Stat Ther 10/07/17 12:48 Ordered Medication Orders Acetaminophen (Tylenol) 650 mg PO Q4H PRN PRN Reason: Pain (Mild 1-3)/fever Albuterol/Ipratropium (Duoneb 3.0-0.5 Mg/3 Ml) 3 ml NEB QIDRT AMBAR Docusate Sodium (Colace) 100 mg PO BID PRN PRN Reason: Constipation Enoxaparin Sodium (Lovenox) 40 mg SUBCUT Q24H [facility] Piperacillin Sod/Tazobactam (Sod 3.375 gm/ Sodium Chloride) 50 mls @ 100 mls/ hr IV Q6H AMBAR Ondansetron HCl (Zofran Odt) 4 mg PO Q4H PRN PRN Reason: nausea, able to take PO Prednisone (Prednisone) 40 mg PO WITHBREAKFAST AMBAR Stop: 10/12/17 13:01 Sodium Chloride (Saline Flush) 10 ml FLUSH ASDIRECTED PRN PRN Reason: Keep Vein Open Zolpidem Tartrate (Ambien) 5 mg PO BEDTIME PRN PRN Reason: Sleep Assessment/Plan Comment:: With previous admission discussed CODE STATUS and patient was a full code.
--- NOTE | 2017-10-07 14:25 | CR ---
INDICATION: Short of breath. Follow-up pneumonia. CHEST: PA and lateral views of the chest 10/07/2017, were compared with 2017, and revealed decreasing bibasilar pleuroparenchymal changes compatible with resolving pneumonia and pleuritis at the lung bases. The heart is slightly enlarged. The aorta is calcified minimally in the arch area and slightly tortuous. Evidence of rheumatoid spondylitis and demineralization compatible with osteoporosis is also again noted. Also noted is evidence of COPD. IMPRESSION: 1. Continued bilateral pleural effusions and pneumonia - pneumonia and pleuritis, but improved compared with the previous examination of 10/04/2017. 2. COPD. 3. ASHD. 4. Osteoporosis is suggested - correlate clinically. 5. 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 MTDD
[2017-10-07] MEDS: Sodium Chloride 0.9% 10 ML Syringe FLUSH PRN (14:26)
[2017-10-07] MEDS: Acetaminophen 325 MG Tab PO PRN (14:26)
[2017-10-07] MEDS: Albuterol/Ipratropium 3.0-0.5 MG/3 ML Neb Soln NEB SCH ×2 (15:33→21:28)
[2017-10-07] MEDS: Codeine/guaiFENesin 100-10 MG/5 ML Syrup 5 ML Cup PO PRN (21:36)
[2017-10-08] MEDS: Piperacillin/Tazobactam 3.375 GM in Sodium Chloride 0.9% 50 ML IV SCH ×4 (00:15→18:51)
[2017-10-08] MEDS: Sodium Chloride 0.9% 10 ML Syringe FLUSH PRN ×2 (06:32→18:51)
[2017-10-08] MEDS: Albuterol/Ipratropium 3.0-0.5 MG/3 ML Neb Soln NEB SCH ×4 (07:10→21:13)
[2017-10-08] MEDS: predniSONE 20 MG Tab PO SCH (08:00)
[2017-10-08] MEDS ORDERED: Warfarin Sliding Scale PO SCH (08:00)
[2017-10-08] MEDS ORDERED: Iopamidol 755 Mg/ML 100 ML Bottle IV ONE (11:57)
--- NOTE | 2017-10-08 12:52 | PCM.PN ---
- General Info Date of Service: 10/08/17 Subjective Update: Patient feels very well today. Shortness of breath is still significant tachycardia with activity. He gets very dyspneic with exertion. He took Robitussin-AC last night and had a great night's sleep. He's continuing to require supplemental oxygen but not using it. No chest pain, no nausea or vomiting, no diarrhea from the antibiotic. Continues on Zosyn day 2. Started on warfarin today for atrial fibrillation. - Patient Data Vitals - Most Recent: Last Vital Signs Temp 36.4 C 10/08/17 07:55 Pulse 81 10/08/17 07:55 Resp 24 H 10/08/17 07:55 BP 138/75 10/08/17 07:55 Pulse Ox 94 L 10/08/17 10:10 Weight - Most Recent: 106.05 kg I&O - Last 24 Hours: Intake & Output 10/07/17 10/08/17 10/08/17 22:59 06:59 14:59 Intake Total 1050 350 Output Total 800 575 Balance 250 -225 Lab Results Last 24 Hours: Laboratory Results - last 24 hr 10/07/17 10/07/17 10/08/17 Range/Units 13:25 13:25 06:50 WBC 10.5 7.3 (4.5-12.0) X10-3/uL RBC 4.52 4.58 (4.30-5.75) x10(6)uL Hgb 13.5 13.5 (11.5-15.5) g/dL Hct 40.5 41.2 (30.0-51.3) % MCV 89.5 89.9 (80-96) fL MCH 29.8 29.4 (27.7-33.6) pg MCHC 33.3 32.6 (32.2-35.4) g/dL RDW 12.6 12.6 (11.5-15.5) % Plt Count 310 334 (125-369) X10(3)uL MPV 8.2 8.2 (7.4-10.4) fL Neut % (Auto) 78.0 70.3 (46-82) % Lymph % (Auto) 7.6 L 16.0 (13-37) % Hancock % (Auto) 11.2 12.8 H (4-12) % Eos % (Auto) 2 1 (1.0-5.0) % Baso % (Auto) 1 0 (0-2) % Neut # (Auto) 8.2 5.1 (1.6-8.3) # Lymph # (Auto) 0.8 1.2 (0.6-5.0) # Hancock # (Auto) 1.2 0.9 (0.0-1.3) # Eos # (Auto) 0.2 0.1 (0.0-0.8) # Baso # (Auto) 0.1 0.0 (0.0-0.2) # PT (8.7-11.1) INR (0.89-1.13) Sodium 134 L (135-145) mmol/L Potassium 3.9 (3.5-5.3) mmol/L Chloride 96 L (100-110) mmol/L Carbon Dioxide 28 (21-32) mmol/L BUN 16 (7-18) mg/dL Creatinine 0.8 (0.70-1.30) mg/dL Est Cr Clr Drug Dosing TNP Estimated GFR (MDRD) > 60 (>60) BUN/Creatinine Ratio 20.0 (9-20) Glucose 149 H (80-116) mg/dL Calcium 9.0 (8.6-10.2) mg/dL Total Bilirubin 0.4 (0.1-1.3) mg/dL AST 21 D (5-25) IU/L ALT 36 D (12-36) U/L Alkaline Phosphatase 63 (56-112) IU/L Total Protein 6.9 (6.0-8.0) g/dL Albumin 2.8 L (3.2-4.6) g/dL Globulin 4.1 g/dL Albumin/Globulin Ratio 0.7 10/08/17 10/08/17 Range/Units 06:50 06:50 WBC (4.5-12.0) X10-3/uL RBC (4.30-5.75) x10(6)uL Hgb (11.5-15.5) g/dL Hct (30.0-51.3) % MCV (80-96) fL MCH (27.7-33.6) pg MCHC (32.2-35.4) g/dL RDW (11.5-15.5) % Plt Count (125-369) X10(3)uL MPV (7.4-10.4) fL Neut % (Auto) (46-82) % Lymph % (Auto) (13-37) % Hancock % (Auto) (4-12) % Eos % (Auto) (1.0-5.0) % Baso % (Auto) (0-2) % Neut # (Auto) (1.6-8.3) # Lymph # (Auto) (0.6-5.0) # Hancock # (Auto) (0.0-1.3) # Eos # (Auto) (0.0-0.8) # Baso # (Auto) (0.0-0.2) # PT 10.8 (8.7-11.1) INR 1.07 (0.89-1.13) Sodium 136 (135-145) mmol/L Potassium 4.0 (3.5-5.3) mmol/L Chloride 98 L (100-110) mmol/L Carbon Dioxide 30 (21-32) mmol/L BUN 14 (7-18) mg/dL Creatinine 0.7 (0.70-1.30) mg/dL Est Cr Clr Drug Dosing 99.94 Estimated GFR (MDRD) > 60 (>60) BUN/Creatinine Ratio 20.0 (9-20) Glucose 125 H (80-116) mg/dL Calcium 9.0 (8.6-10.2) mg/dL Total Bilirubin 0.4 (0.1-1.3) mg/dL AST 16 D (5-25) IU/L ALT 33 (12-36) U/L Alkaline Phosphatase 55 L (56-112) IU/L Total Protein 6.8 (6.0-8.0) g/dL Albumin 2.7 L (3.2-4.6) g/dL Globulin 4.1 g/dL Albumin/Globulin Ratio 0.7 Med Orders - Current: Current Medications Acetaminophen (Tylenol) 650 mg PO Q4H PRN PRN Reason: Pain (Mild 1-3)/fever Last Admin: 10/07/17 14:26 Dose: 650 mg Albuterol/Ipratropium (Duoneb 3.0-0.5 Mg/3 Ml) 3 ml NEB QIDRT [facility] Last Admin: 10/08/17 10:58 Dose: 3 ml Docusate Sodium (Colace) 100 mg PO BID PRN PRN Reason: Constipation Enoxaparin Sodium (Lovenox) 40 mg SUBCUT Q24H [facility] Last Admin: 10/07/17 13:30 Dose: 40 mg Guaifenesin/Codeine Phosphate (Robitussin Ac) 5 ml PO Q4H PRN PRN Reason: Cough Last Admin: 10/07/17 21:36 Dose: 5 ml Piperacillin Sod/Tazobactam (Sod 3.375 gm/ Sodium Chloride) 50 mls @ 100 mls/ hr IV Q6H [facility] Last Admin: 10/08/17 06:32 Dose: 100 mls/hr Ondansetron HCl (Zofran Odt) 4 mg PO Q4H PRN PRN Reason: nausea, able to take PO Prednisone (Prednisone) 40 mg PO WITHBREAKFAST [facility] Stop: 10/12/17 13:01 Last Admin: 10/08/17 08:00 Dose: 40 mg Sodium Chloride (Saline Flush) 10 ml FLUSH ASDIRECTED PRN PRN Reason: Keep Vein Open Last Admin: 10/08/17 06:32 Dose: 10 ml Warfarin Sodium (Coumadin) 5 mg PO DAILY@1600 [facility] Stop: 10/08/17 16:01 Warfarin Sodium (Coumadin Sliding Scale) 0 each PO ASDIRECTED [facility] Zolpidem Tartrate (Ambien) 5 mg PO BEDTIME PRN PRN Reason: Sleep Discontinued Medications Iopamidol (Isovue-370 (76%)) 100 ml IV . DIRECTED ONE Stop: 10/08/17 11:58 Last Admin: 10/08/17 12:22 Dose: 79 ml - Exam General: Alert, Oriented, Cooperative, No Acute Distress HEENT: Pupils Equal, Pupils Reactive Neck: Supple Lungs: Clear to Auscultation, Other (Although the patient's lungs are clear to auscultation and he has good breath sounds today, he still gets extremely tachypneic with any exertion, including leaning forward for exam.) Cardiovascular: Regular Rate, No Murmurs, Irregular Rhythm GI/Abdominal Exam: Normal Bowel Sounds, Soft, Non-Tender, No Distention Extremities: Pedal Edema (Trace pedal edema.) - Problem List & Annotations (1) CAP (community acquired pneumonia) SNOMED Code(s): 144696549 Code(s): J18.9 - PNEUMONIA, UNSPECIFIED ORGANISM Status: Acute Current Visit: No Annotation/Comment:: Lungs are almost completely clear of previous rhonchi and rales but patient continues to be very dyspneic and tachypneic. I'm going to get a CTA to rule out PE and hidden infiltrate, fluid overload, and patient continues on Zosyn day #2 and prednisone. DuoNeb's and supplemental oxygen. (2) HTN (hypertension) SNOMED Code(s): 44283129 Code(s): I10 - ESSENTIAL (PRIMARY) HYPERTENSION Status: Acute Current Visit: No Annotation/Comment:: Restart lisinopril. (3) Insomnia SNOMED Code(s): 437337314 Code(s): G47.00 - INSOMNIA, UNSPECIFIED Status: Acute Current Visit: No Annotation/Comment:: Ambien ordered here. (4) Tobacco abuse SNOMED Code(s): 509436666 Code(s): Z72.0 - TOBACCO USE Status: Acute Current Visit: No Annotation /Comment:: Tobacco replacement as needed. Encourage smoking cessation. (5) Atrial fibrillation SNOMED Code(s): 39604350 Code(s): I48.91 - UNSPECIFIED ATRIAL FIBRILLATION Status: Acute Current Visit: Yes Qualifiers: Atrial fibrillation type: chronic Qualified Code(s): I48.2 - Chronic atrial fibrillation Annotation/Comment:: Unknown if new or old, but suspect old. On DVT prevention dose Lovenox. Start warfarin today. - Problem List Review Problem List Initiated/Reviewed/Updated: Yes - My Orders Last 24 Hours: My Active Orders 10/07/17 12:48 Patient Status [ADT] Routine Height and Weight [RC] 06 Oxygen Therapy [RC] PRN Up With Assistance [RC] 09,13,17,21 Vital Signs [RC] 00,04,08,12,16,20 Respiratory Care Assess and Treatment [CONS] Routine Acetaminophen [Tylenol] 650 mg PO Q4H PRN Docusate Sodium [Colace] 100 mg PO BID PRN Ondansetron [Zofran ODT] 4 mg PO Q4H PRN Sodium Chloride 0.9% [Saline Flush] 10 ml FLUSH ASDIRECTED PRN Zolpidem [Ambien] 5 mg PO BEDTIME PRN Blood Culture x2 Reflex Set [OM.PC] Urgent Peripheral IV Insertion Adult [OM.PC] Routine Resuscitation Status Routine EKG 12 Lead [EK] Stat 10/07/17 12:49 Intake and Output [RC] 06,14,22 10/07/17 12:50 Notify Provider Vital Signs [RC] ASDIRECTED Pulse Oximetry [RC] PRN Sequential Compression Device [OM.PC] Per Unit Routine 10/07/17 12:51 RT Aerosol Therapy [RC] ASDIRECTED 10/07/17 13:00 Piperacillin/Tazobactam [Zosyn] 3.375 gm Sodium Chloride 0.9% [Normal Saline] 50 ml IV Q6H predniSONE 40 mg PO WITHBREAKFAST 10/07/17 13:25 CULTURE BLOOD [BC] Urgent 10/07/17 14:00 Enoxaparin [Lovenox] 40 mg SUBCUT Q24H 10/07/17 16:00 Albuterol/Ipratropium [DuoNeb 3.0-0.5 MG/3 ML] 3 ml NEB QIDRT 10/07/17 17:17 Codeine/guaiFENesin [Robitussin AC] 5 ml PO Q4H PRN 10/07/17 17:48 Pharmacy Consult [Consult to Pharmacy] [CONS] Routine Warfarin Coumadin Justification [AST] Click to Edit 10/08/17 08:00 Warfarin Sliding Scale [Coumadin Sliding Scale] See Dose Instructions PO ASDIRECTED 10/08/17 11:44 Ang Chest [CT] Urgent 10/08/17 16:00 Warfarin [Coumadin] 5 mg PO DAILY@1600 10/09/17 05:11 INR,PT,PROTHROMBIN TIME [COAG] AM 10/10/17 06:00 INR,PT,PROTHROMBIN TIME [COAG] DAILY 10/11/17 06:00 INR,PT,PROTHROMBIN TIME [COAG] DAILY 10/12/17 06:00 INR,PT,PROTHROMBIN TIME [COAG] DAILY 10/13/17 06:00 INR,PT,PROTHROMBIN TIME [COAG] DAILY 10/14/17 06:00 INR,PT,PROTHROMBIN TIME [COAG] DAILY 10/15/17 06:00 INR,PT,PROTHROMBIN TIME [COAG] DAILY 10/16/17 06:00 INR,PT,PROTHROMBIN TIME [COAG] DAILY 10/17/17 06:00 INR,PT,PROTHROMBIN TIME [COAG] DAILY - Plan Plan:: With previous admission discussed CODE STATUS and patient was a full code.
[2017-10-08] MEDS: Lisinopril 10 MG Tab PO SCH (14:35)
[2017-10-08] MEDS: Enoxaparin 40 MG/0.4 ML Syringe SUBCUT SCH (14:35)
[2017-10-08] MEDS ORDERED: Warfarin 5 MG Tab PO SCH (16:00)
[2017-10-08] MEDS: Codeine/guaiFENesin 100-10 MG/5 ML Syrup 5 ML Cup PO PRN (21:16)
[2017-10-09] MEDS: Piperacillin/Tazobactam 3.375 GM in Sodium Chloride 0.9% 50 ML IV SCH ×3 (01:19→12:32)
[2017-10-09] MEDS: Sodium Chloride 0.9% 10 ML Syringe FLUSH PRN ×2 (01:21→06:03)
[2017-10-09] MEDS: Albuterol/Ipratropium 3.0-0.5 MG/3 ML Neb Soln NEB SCH ×2 (07:31→11:10)
[2017-10-09] MEDS: Lisinopril 10 MG Tab PO SCH (08:20)
[2017-10-09] MEDS: predniSONE 20 MG Tab PO SCH (08:20)
[2017-10-09] MEDS: Acetaminophen 325 MG Tab PO PRN (08:20)
[2017-10-09] MEDS ORDERED: Warfarin 5 MG Tab PO SCH (11:00)
--- NOTE | 2017-10-09 11:29 | PCM.DCSUM1 ---
Discharge Summary - Hospital Course Free Text/Narrative:: Date of admission: 10/07/17 Date of discharge: 10/09/17 Admission diagnosis: Bibasilar community-acquired pneumonia with recent admission 10/03/17 and discharged on 10/06/17 now with recurrent shortness of breath and hypoxia. Discharge diagnosis: Same Consults: None Procedures: #1 chest x-ray showed improved bibasilar pneumonia on admission. #2 CTA showed no evidence of pulmonary thromboembolism or CHF. Pneumonia identified within the right lower lobe and to a lesser degree within the posterior basal segment left lower lobe. Underlying COPD/emphysema and chronic bronchitis changes. History of present illness: The patient is a 72-year-old male who presented on with a bibasilar pneumonia and COPD exacerbation. He was treated with azithromycin and Rocephin as well as duo nebs for 4 days of therapy. He was discharged home and was told he should take home oxygen but declined. He went home and did well throughout the day but in the evening became increasingly shortness of breath overnight with sleep and could barely rest. He came in the next morning for his Rocephin injection in the emergency department and I saw him there very tachypneic and recommended reassessment. After reevaluating decided to readmit. Hospital course by problem: #1 bibasilar community-acquired pneumonia failing recent community-acquired pneumonia treatment. Patient was started on Zosyn. Did very well on this. Lungs cleared completely and CT results as above. Will be discharged home on 7 more days of Augmentin therapy and oral prednisone. #2 hypertension. Patient's home antihypertensives were able to be started as blood pressure rebounded between his discharge and admission. #3 tobacco abuse. Patient denied restarting smoking between his discharge and admission. Recommend continued abstinence. #4 atrial fibrillation which was diagnosed on 10/07/17 with EKG. Had not had any EKG previously. Was rate controlled. Suspect this is chronic and not picked up previously as patient does not have a palpable irregularity or audible irregularity on exam with this. Anticoagulated with warfarin and will continue on warfarin anticoagulation through the Coumadin clinic at [place]. - Discharge Data Discharge Date: 10/09/17 Discharge Disposition: Home, Self-Care 01 Condition: Good - Discharge Diagnosis/Problem(s) (1) CAP (community acquired pneumonia) SNOMED Code(s): 999320333 ICD Code: J18.9 - PNEUMONIA, UNSPECIFIED ORGANISM Status: Acute Current Visit: No Problem Details: Responded well to Zosyn. CTA showed no pulmonary embolism or CHF. He did have a right lower lobe and posterior basal segment left lower lobe infiltrate. Underlying COPD/emphysema and chronic bronchitis changes. We'll discharge home today on Augmentin for another 7 days of therapy. Recommended probiotic to prevent diarrhea. Follow-up with primary care provider in one week or less. (2) HTN (hypertension) SNOMED Code(s): 20519273 ICD Code: I10 - ESSENTIAL (PRIMARY) HYPERTENSION Status: Acute Current Visit: No Problem Details: May restart home meds as previous. (3) Insomnia SNOMED Code(s): 234537041 ICD Code: G47.00 - INSOMNIA, UNSPECIFIED Status: Acute Current Visit: No Problem Details: Patient aware of Tylenol PM risk at home. (4) Tobacco abuse SNOMED Code(s): 765571693 ICD Code: Z72.0 - TOBACCO USE Status: Acute Current Visit: No Problem Details: Tobacco replacement as needed. Encourage smoking cessation. (5) Atrial fibrillation SNOMED Code(s): 76026343 ICD Code: I48.91 - UNSPECIFIED ATRIAL FIBRILLATION Status: Acute Current Visit: Yes Problem Details: Likely old. Patient was started on warfarin and will follow up with the Coumadin clinic. Qualifiers: Atrial fibrillation type: chronic Qualified Code(s): I48.2 - Chronic atrial fibrillation - Patient Summary/Data Consults: Consultations 10/07/17 12:48 Respiratory Care Assess and Treatment [CONS] Routine Comment: Physician Instructions: 10/07/17 17:48 Pharmacy Consult [Consult to Pharmacy] [CONS] Routine Comment: Physician Instructions: Quantity: - Patient Instructions Diet: Heart Healthy Diet Activity: Cough & Deep Breathe, Rest and Relax Today - Discharge Plan Prescriptions/Med Rec: Amoxicillin/Clavulanate K [Augmentin 875-125 MG] 1 tab PO BID #15 tablet Codeine/guaiFENesin [Robitussin AC] 5 ml PO Q4H PRN #120 ml PRN Reason: Cough predniSONE [Deltasone] 40 mg PO DAILY 2 Days #4 tablet Warfarin [Coumadin] 5 mg PO DAILY #30 tablet Home Medications: Home Meds Albuterol [Ventolin HFA] 2 puff PO Q4H PRN 10/28/16 [History] Nicotine Polacrilex [Commit] 2 mg BUCCAL Q1H PRN jos 10/06/17 [Rx] Amoxicillin/Clavulanate K [Augmentin 875-125 MG] 1 tab PO BID #15 tablet [Rx] Codeine/guaiFENesin [Robitussin AC] 5 ml PO Q4H PRN #120 ml 10/09/17 [Rx] Lisinopril [Prinivil] 10 mg PO DAILY tablet 10/09/17 [Rx] Warfarin [Coumadin] 5 mg PO DAILY #30 tablet 10/09/17 [Rx] predniSONE [Deltasone] 40 mg PO DAILY 2 Days #4 tablet 10/09/17 [Rx] Patient Handouts: Vitamin K Foods and Warfarin, Shortness of Breath, Adult, [id number], What You Need to Know About Warfarin, Warfarin tablets, Home Oxygen Use, Adult, Atrial Fibrillation, Atrial Fibrillation, [id number], Community-Acquired Pneumonia, Adult, Oximetry, Community-Acquired Pneumonia, Adult, [id number]-Lteb - Discharge Summary/Plan Comment DC Time >30 min.: Yes - General Info Date of Service: 10/09/17 Subjective Update: The day of discharge, patient was feeling very well. He was ready for discharge. No chest pain, no shortness of breath, no nausea, no vomiting. No diarrhea. Had had a little bit of blood from his nose on the right but not a true nosebleed. - Patient Data Vitals - Most Recent: Last Vital Signs Temp 36.6 C 10/09/17 08:00 Pulse 87 10/09/17 08:00 Resp 18 10/09/17 08:00 BP 132/85 10/09/17 08:20 Pulse Ox 92 L 10/09/17 08:00 Weight - Most Recent: 106.821 kg I&O - Last 24 hours: Intake & Output 10/08/17 10/09/17 10/09/17 22:59 06:59 14:59 Intake Total 1550 255 Output Total 1340 Balance 210 255 Lab Results - Last 24 hrs: Laboratory Results - last 24 hr 10/09/17 Range/Units 05:50 PT 11.1 (8.7-11.1) INR 1.10 (0.89-1.13) GIANFRANCO Results - Last 24 hrs: Microbiology 10/07/17 13:25 Aerobic Blood Culture - Preliminary Blood - Venous NO GROWTH AFTER 1 DAY Anaerobic Blood Culture - Preliminary NO GROWTH AFTER 1 DAY Med Orders - Current: Current Medications Acetaminophen (Tylenol) 650 mg PO Q4H PRN PRN Reason: Pain (Mild 1-3)/fever Last Admin: 10/09/17 08:20 Dose: 650 mg Albuterol/Ipratropium (Duoneb 3.0-0.5 Mg/3 Ml) 3 ml NEB QIDRT [facility] Last Admin: 10/09/17 11:10 Dose: 3 ml Docusate Sodium (Colace) 100 mg PO BID PRN PRN Reason: Constipation Enoxaparin Sodium (Lovenox) 40 mg SUBCUT Q24H [facility] Last Admin: 10/08/17 14:35 Dose: 40 mg Guaifenesin/Codeine Phosphate (Robitussin Ac) 5 ml PO Q4H PRN PRN Reason: Cough Last Admin: 10/08/17 21:16 Dose: 5 ml Piperacillin Sod/Tazobactam (Sod 3.375 gm/ Sodium Chloride) 50 mls @ 100 mls/ hr IV Q6H [facility] Last Admin: 10/09/17 06:02 Dose: 100 mls/hr Lisinopril (Prinivil) 10 mg PO DAILY [facility] Last Admin: 10/09/17 08:20 Dose: 10 mg Ondansetron HCl (Zofran Odt) 4 mg PO Q4H PRN PRN Reason: nausea, able to take PO Prednisone (Prednisone) 40 mg PO WITHBREAKFAST [facility] Stop: 10/12/17 13:01 Last Admin: 10/09/17 08:20 Dose: 40 mg Sodium Chloride (Saline Flush) 10 ml FLUSH ASDIRECTED PRN PRN Reason: Keep Vein Open Last Admin: 10/09/17 06:03 Dose: 10 ml Warfarin Sodium (Coumadin Sliding Scale) 0 each PO ASDIRECTED [facility] Warfarin Sodium (Coumadin) 5 mg PO 10/09/17@1100 [facility] Stop: 10/09/17 12:00 Zolpidem Tartrate (Ambien) 5 mg PO BEDTIME PRN PRN Reason: Sleep Discontinued Medications Iopamidol (Isovue-370 (76%)) 100 ml IV . DIRECTED ONE Stop: 10/08/17 11:58 Last Admin: 10/08/17 12:22 Dose: 79 ml Warfarin Sodium (Coumadin) 5 mg PO DAILY@1600 [facility] Stop: 10/08/17 16:01 Last Admin: 10/08/17 15:57 Dose: 5 mg - Exam Quality Assessment: Reports: Supplemental Oxygen General: Reports: Alert, Oriented, Cooperative, No Acute Distress HEENT: Reports: Pupils Equal, Pupils Reactive Neck: Reports: Supple Lungs: Reports: Clear to Auscultation, Normal Respiratory Effort (Lungs are completely clear with no wheezes, rhonchi or rales.) Cardiovascular: Reports: Regular Rate (Heart sounds regular today.), Regular Rhythm, No Murmurs GI/Abdominal Exam: Normal Bowel Sounds, Soft, Non-Tender, No Distention Back Exam: Reports: Normal Inspection Extremities: No Pedal Edema Skin: Reports: Warm, Dry, Intact Psy/Mental Status: Reports: Alert, Normal Affect, Normal Mood *Q Meaningful Use (DIS) - VTE *Q VTE Criteria *Q: - Stroke *Q Stroke Criteria *Q: - AMI *Q AMI Criteria *Q:
[2017-10-09 11:44] VITALS: BP 137/84
== END 2017-10-09 13:10 | disposition home or self-care (01) | DRG 190 ==
LOC: FB.EDOUT 11:57 → FB.MS 12:12 → EDSTATUS 12:12
PROVIDERS: ADMIT Family Medicine; ATTEND Family Medicine
DX: J44.0 Chronic obstructive pulmonary disease with (acute) lower respiratory infection (principal); J18.9 Pneumonia, unspecified organism; F17.210 Nicotine dependence, cigarettes, uncomplicated; J44.1 Chronic obstructive pulmonary disease with (acute) exacerbation; Z87.01 Personal history of pneumonia (recurrent); R09.02 Hypoxemia; I10 Essential (primary) hypertension; I48.2 Chronic atrial fibrillation; F10.10 Alcohol abuse, uncomplicated; M54.9 Dorsalgia, unspecified; G89.29 Other chronic pain; G47.00 Insomnia, unspecified; N40.0 Benign prostatic hyperplasia without lower urinary tract symptoms; Z79.82 Long term (current) use of aspirin; Z79.01 Long term (current) use of anticoagulants; Z79.52 Long term (current) use of systemic steroids
CPT/HCPCS: 36415; 71046; 71275; 80053; 85025; 85610; 87040; 93005; 94150; 94640; A9270-GY; J1650; J2543; J7050; J7620; Q9967

== ENCOUNTER 2018-10-20 06:20 | Day surgery (SDC) | payer MEDICARE, OTHER ==
[2018-10-20] MEDS ORDERED: Midazolam 1 MG/ML 2 ML SDV IV ONE (06:21)
[2018-10-20] MEDS ORDERED: Propofol 200 MG/20 ML SDV IV ONE (06:21)
[2018-10-20] MEDS ORDERED: Lactated Ringers 1,000 ML IV SCH (06:45)
--- NOTE | 2018-10-20 08:53 | PCM.OPNOTE ---
- General Post-Op/Procedure Note Date of Surgery/Procedure: 10/20/18 Operative Procedure(s): c scope with bx Findings: ascending colon and cecum 8 polyps Transverse colon 7 polyps descending colon 2 polyps rectum 3 polyps Pre Op Diagnosis: hx of colon polyp s Post-Op Diagnosis: ascending colon and cecum 8 polyps. Transverse colon 7 polyps. descending colon 2 polyps. rectum 3 polyps Anesthesia Technique: Moderate Sedation Primary Surgeon: Roger Whitmore Anesthesia Provider: Leisa Tellez Pathology: ascending colon and cecum 8 polyps Transverse colon 7 polyps descending colon 2 polyps rectum 3 polyps Complications: None Condition: Good Free Text/Narrative:: see dictation
[2018-10-20 09:27] VITALS: BP 112/52
--- NOTE | 2018-10-20 11:20 | OR ---
DATE OF OPERATION: 10/20/2018 SURGEON: Roger Whitmore MD PROCEDURE PERFORMED: Colonoscopy with hot loop and cold forceps biopsy. PREOPERATIVE DIAGNOSIS: Personal history of colon polyps. POSTOPERATIVE DIAGNOSIS: Multiple colon polyps of the colon and rectum. INDICATIONS FOR PROCEDURE: This is a 73-year-old white male, who is overdue for a followup colonoscopy. He has a personal history of colon polyps. He was offered and accepted same. DESCRIPTION OF OPERATION: After an excellent IV sedation was administered, digital rectal exam was performed. The flexible colonoscope was inserted and advanced to the cecum. The prep was excellent. The following findings were noted. In the cecum, four polyps were biopsied and removed with a total of cold forceps and hot loop biopsy. Ascending colon, four polyps were removed with a combination of hot loop and cold forceps biopsy. Transverse colon, a total of seven polyps were removed, two with hot loop, the remainder with cold forceps. Descending colon, two polyps were removed with cold forceps biopsy. Rectum, three polyps were removed with cold forceps biopsy. He also had several other that appeared to have the appearance of hyperplasia and these were left. The patient tolerated the procedure well, was taken to recovery room. Results by letter. /[id number] /MODL
== END 2018-10-20 09:35 | disposition home or self-care (01) ==
LOC: FB.SDS 06:20
PROVIDERS: ATTEND Surgery
DX: Z12.11 Encounter for screening for malignant neoplasm of colon (principal); D12.0 Benign neoplasm of cecum; D12.2 Benign neoplasm of ascending colon; D12.3 Benign neoplasm of transverse colon; K63.5 Polyp of colon; K62.1 Rectal polyp; J43.9 Emphysema, unspecified; I10 Essential (primary) hypertension; E66.01 Morbid (severe) obesity due to excess calories; Z68.37 Body mass index [BMI] 37.0-37.9, adult; K21.9 Gastro-esophageal reflux disease without esophagitis; I48.91 Unspecified atrial fibrillation; Z86.010 Personal history of colon polyps; Z87.891 Personal history of nicotine dependence; Z79.01 Long term (current) use of anticoagulants; Z79.899 Other long term (current) drug therapy
CPT/HCPCS: 00811; 45380; 45384; 88305; J2250; J2704; J7120

== ENCOUNTER 2019-12-30 06:26 | Day surgery (SDC) | payer MEDICARE, OTHER ==
[2019-12-30] MEDS ORDERED: Propofol 200 MG/20 ML SDV IV ONE (06:27)
[2019-12-30] MEDS ORDERED: Lidocaine 1% PF 2 ML SDV INJECT ONE (06:27)
[2019-12-30] MEDS ORDERED: Sodium Chloride 0.9% 10 ML Syringe FLUSH PRN (06:45)
[2019-12-30] MEDS: Lactated Ringers 1,000 ML IV SCH (07:15)
[2019-12-30] MEDS: Albuterol/Ipratropium 3.0-0.5 MG/3 ML Neb Soln NEB ONE (07:22)
--- NOTE | 2019-12-30 08:48 | PCM.OPNOTE ---
- General Post-Op/Procedure Note Date of Surgery/Procedure: 12/30/19 Operative Procedure(s): c scope with biopsy Findings: Transverse colon polyp x5 desce colon polyp x2 sigmoid polyp rectal polyp Pre Op Diagnosis: personal hx of colon polyp Post-Op Diagnosis: Transverse colon polyp x5. desce colon polyp x2. sigmoid polyp. rectal polyp Anesthesia Technique: MAC Primary Surgeon: Roger Whitmore Anesthesia Provider: Sergey Knutson Pathology: Transverse colon polyp x5 desce colon polyp x2 sigmoid polyp rectal polyp Complications: None Condition: Good Free Text/Narrative:: results by letter
[2019-12-30 08:50] VITALS: PULSE 66
[2019-12-30 09:28] VITALS: BP 145/69
--- NOTE | 2019-12-30 20:43 | OR ---
DATE OF OPERATION: 12/30/2019 SURGEON: Roger Whitmore MD PROCEDURE PERFORMED: Colonoscopy with cold forceps biopsy. PREOPERATIVE DIAGNOSIS: Personal history of colon polyps. POSTOPERATIVE DIAGNOSES: 1. Transverse colon polyps x5. 2. Descending colon polyps x2. 3. Sigmoid colon polyp x1. 4. Rectal polyp x1. INDICATIONS FOR PROCEDURE: This 74-year-old white male, who is referred with the above-mentioned history, presents now for followup C-scope. DESCRIPTION OF OPERATION: After an excellent IV sedation was administered, digital rectal exam was performed. No marked abnormality was noted. Flexible colonoscope was inserted and advanced to the cecum. The prep was excellent. The following findings were noted: Ascending colon, unremarkable. Transverse colon, a total of 5 polypoid lesions ranging in size from 3 to 4 mm were biopsied with cold biopsy forceps. These were not amenable to loop snare, submitted in a single container, and this was along the entire length of the transverse colon. Descending colon had 2 approximately 3 mm polyps, biopsied with cold biopsy forceps and sent for permanent. Sigmoid, single polyp, biopsied with cold biopsy forceps and sent for permanent. Rectum had a small polyp above the anal verge. Again, biopsied with cold biopsy forceps and sent for permanent. The patient tolerated the procedure well, was taken to recovery room in good condition. Results will be sent to the patient by letter. /[id number] /MODL
== END 2019-12-30 09:34 | disposition home or self-care (01) ==
LOC: FB.SDS 06:26
PROVIDERS: ATTEND Surgery
DX: Z12.11 Encounter for screening for malignant neoplasm of colon (principal); D12.3 Benign neoplasm of transverse colon; D12.4 Benign neoplasm of descending colon; K62.1 Rectal polyp; K42.9 Umbilical hernia without obstruction or gangrene; K21.9 Gastro-esophageal reflux disease without esophagitis; J43.9 Emphysema, unspecified; F17.210 Nicotine dependence, cigarettes, uncomplicated; E66.01 Morbid (severe) obesity due to excess calories; I10 Essential (primary) hypertension; I48.19 Other persistent atrial fibrillation; Z79.01 Long term (current) use of anticoagulants; Z79.899 Other long term (current) drug therapy; Z68.38 Body mass index [BMI] 38.0-38.9, adult; Z86.010 Personal history of colon polyps; Z98.890 Other specified postprocedural states
CPT/HCPCS: 00811-QZ; 88305; J2001; J2704; J7120; J7620-GY

== ENCOUNTER 2021-06-26 07:49 | Day surgery (SDC) | payer MEDICARE, OTHER ==
[2021-06-26] MEDS ORDERED: Propofol 200 MG/20 ML SDV IV ONE (07:50)
[2021-06-26] MEDS ORDERED: Sodium Chloride 0.9% 10 ML Syringe FLUSH PRN (08:00)
[2021-06-26] MEDS ORDERED: Lactated Ringers 1,000 ML IV SCH (08:00)
--- NOTE | 2021-06-26 09:28 | PCM.HP.2 ---
H&P History of Present Illness - General Date of Service: 06/26/21 Admit Problem/Dx: Admission Diagnosis/Problem Admission Diagnosis/Problem Colonoscopy Source of Information: Patient, Old Records History Limitations: Reports: No Limitations - History of Present Illness Initial Comments - Free Text/Narative: Here for colonoscopy for hx polyps - Related Data Allergies/Adverse Reactions: Allergies Allergy/AdvReac Type Severity Reaction Status Date / Time celecoxib [From Celebrex] AdvReac Headache Verified 06/25/21 14:13 Home Medications: Home Meds Albuterol [Ventolin HFA] 2 puff PO Q4H PRN 10/28/16 [History] Lisinopril 40 mg PO DAILY 04/30/18 [History] Warfarin [Coumadin] 7.5 - 10 mg PO ASDIRECTED 04/30/18 [History] Metoprolol Succinate [Toprol XL] 25 mg PO DAILY #30 tab.er 05/04/18 [Rx] Cholecalciferol (Vitamin D3) [Vitamin D3] 1,000 unit PO DAILY 12/29/19 [History] Past Medical History HEENT History: Reports: Cataract, Impaired Vision Cardiovascular History: Reports: Afib, Hypertension, Other (See Below) Other Cardiovascular History: ELEVATED CRP Respiratory History: Reports: Bronchitis, Recurrent, Pneumonia, Recurrent Other Respiratory History: CHRONIC COUGH, EMPHYSEMA, LESION OF RIGHT LUNG, SMOKING 55 PACK YEARS. THOROSCOPY WITH RIGHT PLEURAL EFFUSION DRAINAGE Gastrointestinal History: Reports: Colon Polyp, GERD Other Gastrointestinal History: INGUINAL HERNIA Genitourinary History: Reports: BPH Musculoskeletal History: Reports: Arthritis Other Musculoskeletal History: ACHILLES TENDONITIS, DDD, DISH, SPINAL STENOSIS OF CERVICAL REGION, LOWER EXTREMITY EDEMA Neurological History: Reports: Other (See Below) Other Neuro History: little forgetful Psychiatric History: Reports: Addiction, Other (See Below) Other Psychiatric History: ALCOHOL ABUSE IN RECOVERY (SINCE 1992) Endocrine/Metabolic History: Reports: Obesity/BMI 30+ Other Endocrine/Metabolic History: enlarged thyroid Hematologic History: Reports: Anticoagulation Therapy Immunologic History: Reports: None Oncologic (Cancer) History: Reports: None Dermatologic History: Other Dermatologic History: HEMATOMA OF ABDOMINAL WALL - Infectious Disease History Infectious Disease History: Reports: Measles, Rubella, Shingles - Past Surgical History Head Surgeries/Procedures: Reports: None HEENT Surgical History: Reports: Other (See Below) Other HEENT Surgeries/Procedures: VOCAL CORD BIOPSY - BENIGN, MYOFASCIAL PAIN Cardiovascular Surgical History: Reports: None Respiratory Surgical History: Reports: Lung Biopsies, Thoracotomy Other Respiratory Surgeries/Procedures: THORACOSCOPY GI Surgical History: Reports: Colonoscopy Neurological Surgical History: Reports: Lumbar Spine, Vertebroplasty Musculoskeletal Surgical History: Reports: Hip Replacement, Other (See Below) Other Musculoskeletal Surgeries/Procedures:: BACK SURGERY, RIGHT ANKLE FX SURGERY. LEFT TOTAL HIP. Oncologic Surgical History: Reports: None Dermatological Surgical History: Reports: None Social & Family History - Family History Family Medical History: No Pertinent Family History - Caffeine Use Caffeine Use: Reports: Coffee Other Caffeine Use: 2 cups H&P Review of Systems - Review of Systems: Review Of Systems: Comprehensive ROS is negative, except as noted in HPI. Exam - Exam Exam: See Below - Vital Signs Vital Signs: Last Vital Signs Temp 98.8 F 06/26/21 08:00 Pulse 60 06/26/21 08:00 Resp 22 H 06/26/21 08:00 BP 135/81 06/26/21 08:00 Pulse Ox 94 L 06/26/21 08:00 Weight: 122.47 kg - Exam General: Alert, Oriented Lungs: Clear to Auscultation, Normal Respiratory Effort Cardiovascular: Regular Rate, Regular Rhythm GI/Abdominal Exam: Soft, Non-Tender Sepsis Event Note - Focused Exam Vital Signs: Vital Signs Temp Pulse Resp BP Pulse Ox 06/26/21 08:00 98.8 F 60 22 H 135/81 94 L Problem List Initiated/Reviewed/Updated: Yes Orders Last 24hrs: Active Orders 24 hr Category Date Time Status Patient Status [ADT] Routine ADT 06/26/21 08:00 Active Patient to Empty Bladder [RC] ASDIRECTED Care 06/26/21 08:00 Active Verify Patient Consent Obtain [RC] ASDIRECTED Care 06/26/21 08:00 Active Nothing Per Oral Diet [DIET] Diet 06/26/21 Breakfast Ordered Lactated Ringers [Ringers, Lactated] 1,000 ml Med 06/26/21 08:00 Active IV ASDIRECTED Sodium Chloride 0.9% [Saline Flush] Med 06/26/21 08:00 Active 10 ml FLUSH ASDIRECTED PRN Peripheral IV Insertion Adult [OM.PC] Routine Oth 06/26/21 08:00 Ordered Resuscitation Status Routine Resus Stat 06/25/21 14:20 Ordered Medication Orders Lactated Ringer's (Ringers, Lactated) 1,000 mls @ 125 mls/hr IV ASDIRECTED [facility] Last Admin: 06/26/21 08:35 Dose: 125 mls/hr Documented by: JERRY Sodium Chloride (Sodium Chloride 0.9% 10 Ml Syringe) 10 ml FLUSH ASDIRECTED PRN PRN Reason: Keep Vein Open Assessment/Plan Comment:: Hx Colon Polyps; ok to proceed. Risks and complications reviewed, consent obtained
--- NOTE | 2021-06-26 10:06 | PCM.OPNOTE ---
- General Post-Op/Procedure Note Date of Surgery/Procedure: 06/26/21 Operative Procedure(s): Colonoscopy with polypectomy X 8 Pre Op Diagnosis: Hx Colon Polyps Post-Op Diagnosis: Same Anesthesia Technique: MAC Primary Surgeon: Ricky Waters Complications: None Condition: Good
--- NOTE | 2021-06-26 11:09 | OR ---
DATE OF OPERATION: 06/26/2021 SURGEON: Ricky Waters MD PREOPERATIVE DIAGNOSIS: History of colon polyps. POSTOPERATIVE DIAGNOSIS: Colon polyps. ANESTHESIA: IV sedation. PROCEDURE: The patient was brought to the procedure room where he was placed on his left side and IV sedation administered. Digital rectal exam was performed which was normal. The colonoscope was inserted and advanced to the level of the cecum without difficulty. Cecal position was confirmed by identifying the appendiceal lumen and ileocecal valve. The prep was good and surfaces were well visualized. Upon withdrawing of the scope, he has a cluster of 4 polyps in the distal ascending colon. Three of them were small 6 mm sessile polyps removed via hot biopsy forceps. The other one was a larger 10 mm sessile polyp removed with the cautery snare. All these were collected for pathology review. In the transverse colon, he has a similar cluster of 3 small 5 to 6 mm sessile polyps removed with the hot biopsy forceps and sent for pathology review. Descending colon and sigmoid colon were normal. In the rectum at 7 cm, there was a 6 mm sessile polyp removed with hot biopsy forceps and also sent for pathology review. Retroflexion was normal. Air was removed and the scope withdrawn. The patient tolerated the procedure well and returned to recovery in stable condition. The patient will be contacted with the pathology report when it returns. I would recommend he undergo surveillance colonoscopy again in 3 years if 3 or more of these are adenomatous. If only 1 or 2 are adenomatous, he could wait 5 years until his next colonoscopy. /[id number] FRANKY/ANIA
[2021-06-26 11:14] VITALS: BP 121/63; PULSE 64
== END 2021-06-26 11:10 | disposition home or self-care (01) ==
LOC: FB.SDS 07:49
PROVIDERS: ATTEND Surgery
DX: Z12.11 Encounter for screening for malignant neoplasm of colon (principal); D12.2 Benign neoplasm of ascending colon; D12.3 Benign neoplasm of transverse colon; K62.1 Rectal polyp; I48.91 Unspecified atrial fibrillation; I10 Essential (primary) hypertension; N40.0 Benign prostatic hyperplasia without lower urinary tract symptoms; J43.9 Emphysema, unspecified; E66.9 Obesity, unspecified; Z86.010 Personal history of colon polyps; Z88.8 Allergy status to other drugs, medicaments and biological substances; Z79.899 Other long term (current) drug therapy; Z98.890 Other specified postprocedural states; Z68.37 Body mass index [BMI] 37.0-37.9, adult
CPT/HCPCS: 00812; 45384; 45385; 88305; J2704; J7120

== ENCOUNTER 2021-08-24 11:43 | Emergency (ER) | payer MEDICARE, OTHER ==
[2021-08-24 14:29] VITALS: BP 108/52; PULSE 69
== END 2021-08-24 14:26 | disposition home or self-care (01) ==
LOC: FB.ED 11:43
DX: N17.9 Acute kidney failure, unspecified (principal); I11.0 Hypertensive heart disease with heart failure; I50.9 Heart failure, unspecified; I48.91 Unspecified atrial fibrillation; E86.0 Dehydration; N40.0 Benign prostatic hyperplasia without lower urinary tract symptoms; E66.9 Obesity, unspecified; Z68.30 Body mass index [BMI] 30.0-30.9, adult; Z88.8 Allergy status to other drugs, medicaments and biological substances; Z79.01 Long term (current) use of anticoagulants; Z79.82 Long term (current) use of aspirin; Z79.899 Other long term (current) drug therapy
CPT/HCPCS: 36415; 71045; 80053; 83880; 84484; 85025; 85379; 85610; 99284-25

== ENCOUNTER 2021-09-12 08:30 | Inpatient (IN) | payer MEDICARE, OTHER ==
[2021-09-12] MEDS ORDERED: Albuterol 8 GM Inhaler INH PRN (15:34)
[2021-09-12] MEDS ORDERED: Bumetanide 2 MG Tab PO PRN (15:55)
[2021-09-12] MEDS: Pantoprazole 40 MG Tab.CR PO SCH (17:55)
[2021-09-12] MEDS: Carvedilol 6.25 MG Tab PO SCH (18:09)
[2021-09-12] MEDS: oxyCODONE 5 MG Tab PO PRN (19:55)
[2021-09-12] MEDS: Ipratropium 0.02% 0.5 MG/2.5 ML Neb Soln INH SCH (20:02)
[2021-09-12] MEDS: LIDOCAINE PATCH TRDERM SCH (20:03)
[2021-09-12] MEDS: Docusate Sodium 100 MG Cap PO SCH (20:03)
[2021-09-12] MEDS: Gabapentin 100 MG Cap PO SCH (20:08)
[2021-09-12] MEDS: Melatonin 3 MG Tab PO PRN (20:09)
[2021-09-12] MEDS: Acetaminophen 500 MG Tab PO PRN (22:10)
[2021-09-13] MEDS: diphenhydrAMINE 25 MG Cap PO PRN (01:51)
[2021-09-13] MEDS: oxyCODONE 5 MG Tab PO PRN ×3 (01:51→14:21)
[2021-09-13] MEDS: Ipratropium 0.02% 0.5 MG/2.5 ML Neb Soln INH SCH ×4 (06:35→21:55)
[2021-09-13] MEDS: Pantoprazole 40 MG Tab.CR PO SCH ×2 (06:36→17:30)
[2021-09-13] MEDS: Acetaminophen 500 MG Tab PO PRN ×2 (08:24→21:58)
[2021-09-13] MEDS: Bumetanide 2 MG Tab PO SCH ×2 (08:27→14:15)
[2021-09-13] MEDS: Carvedilol 6.25 MG Tab PO SCH ×2 (08:27→17:30)
[2021-09-13] MEDS: Docusate Sodium 100 MG Cap PO SCH ×2 (08:28→21:55)
[2021-09-13] MEDS: Lidocaine 4% 1 each Patch TOP SCH (08:29)
[2021-09-13] MEDS: Aspirin 81 MG Tab.EC PO SCH (08:30)
[2021-09-13] MEDS: Magnesium Oxide 400 MG Tab PO SCH (08:30)
[2021-09-13] MEDS: Clopidogrel 75 MG Tab PO SCH (08:31)
[2021-09-13] MEDS: Ferrous Sulfate 325 MG Tab PO SCH (08:31)
[2021-09-13] MEDS: Rosuvastatin 20 MG Tab PO SCH (08:32)
[2021-09-13] MEDS: Tamsulosin 0.4 MG Cap.ER PO SCH (08:33)
[2021-09-13] MEDS: Gabapentin 100 MG Cap PO SCH ×3 (08:43→21:55)
[2021-09-13] MEDS: LIDOCAINE PATCH TRDERM SCH (21:57)
[2021-09-14] MEDS: diphenhydrAMINE 25 MG Cap PO PRN (02:33)
[2021-09-14] MEDS: Pantoprazole 40 MG Tab.CR PO SCH ×3 (06:18→17:55)
[2021-09-14] MEDS: Ipratropium 0.02% 0.5 MG/2.5 ML Neb Soln INH SCH ×4 (06:18→20:11)
[2021-09-14] MEDS: oxyCODONE 5 MG Tab PO PRN ×3 (06:21→23:51)
[2021-09-14] MEDS: Bumetanide 2 MG Tab PO SCH ×2 (08:54→14:56)
[2021-09-14] MEDS: Carvedilol 6.25 MG Tab PO SCH ×2 (08:55→17:55)
[2021-09-14] MEDS: Lidocaine 4% 1 each Patch TOP SCH (08:57)
[2021-09-14] MEDS: Gabapentin 100 MG Cap PO SCH ×3 (08:57→20:22)
[2021-09-14] MEDS: Docusate Sodium 100 MG Cap PO SCH ×2 (08:58→20:22)
[2021-09-14] MEDS: Rosuvastatin 20 MG Tab PO SCH (08:58)
[2021-09-14] MEDS: Aspirin 81 MG Tab.EC PO SCH (08:58)
[2021-09-14] MEDS: Tamsulosin 0.4 MG Cap.ER PO SCH (08:59)
[2021-09-14] MEDS: Magnesium Oxide 400 MG Tab PO SCH (08:59)
[2021-09-14] MEDS: Clopidogrel 75 MG Tab PO SCH (08:59)
[2021-09-14] MEDS: Ferrous Sulfate 325 MG Tab PO SCH (08:59)
[2021-09-14] MEDS: LIDOCAINE PATCH TRDERM SCH (21:46)
[2021-09-15] MEDS: oxyCODONE 5 MG Tab PO PRN ×2 (06:24→14:24)
[2021-09-15] MEDS: Ipratropium 0.02% 0.5 MG/2.5 ML Neb Soln INH SCH ×4 (06:25→20:51)
[2021-09-15] MEDS: Pantoprazole 40 MG Tab.CR PO SCH ×2 (06:32→18:07)
[2021-09-15] MEDS: Carvedilol 6.25 MG Tab PO SCH ×2 (08:07→18:06)
[2021-09-15] MEDS: Bumetanide 2 MG Tab PO SCH ×2 (08:07→13:10)
[2021-09-15] MEDS: Lidocaine 4% 1 each Patch TOP SCH (08:08)
[2021-09-15] MEDS: Docusate Sodium 100 MG Cap PO SCH ×2 (08:09→20:59)
[2021-09-15] MEDS: Tamsulosin 0.4 MG Cap.ER PO SCH (08:10)
[2021-09-15] MEDS: Ferrous Sulfate 325 MG Tab PO SCH (08:10)
[2021-09-15] MEDS: Aspirin 81 MG Tab.EC PO SCH (08:10)
[2021-09-15] MEDS: Rosuvastatin 20 MG Tab PO SCH (08:10)
[2021-09-15] MEDS: Magnesium Oxide 400 MG Tab PO SCH (08:12)
[2021-09-15] MEDS: Clopidogrel 75 MG Tab PO SCH (08:12)
[2021-09-15] MEDS: Gabapentin 100 MG Cap PO SCH ×3 (08:14→20:58)
[2021-09-15] MEDS: Polyethylene Glycol 3350 Powder 17 GM Packet PO SCH (11:23)
[2021-09-15] MEDS: LIDOCAINE PATCH TRDERM SCH (21:00)
[2021-09-15] MEDS: diphenhydrAMINE 25 MG Cap PO PRN (21:05)
[2021-09-16] MEDS: oxyCODONE 5 MG Tab PO PRN ×3 (00:50→23:52)
[2021-09-16] MEDS: Pantoprazole 40 MG Tab.CR PO SCH ×2 (06:58→19:53)
[2021-09-16] MEDS: Ipratropium 0.02% 0.5 MG/2.5 ML Neb Soln INH SCH ×4 (06:59→21:05)
[2021-09-16] MEDS: Carvedilol 6.25 MG Tab PO SCH ×2 (08:55→19:53)
[2021-09-16] MEDS: Bumetanide 2 MG Tab PO SCH ×2 (08:56→14:39)
[2021-09-16] MEDS: Lidocaine 4% 1 each Patch TOP SCH (08:57)
[2021-09-16] MEDS: Rosuvastatin 20 MG Tab PO SCH (08:58)
[2021-09-16] MEDS: Docusate Sodium 100 MG Cap PO SCH ×2 (08:58→21:05)
[2021-09-16] MEDS: Aspirin 81 MG Tab.EC PO SCH (08:58)
[2021-09-16] MEDS: Tamsulosin 0.4 MG Cap.ER PO SCH (08:59)
[2021-09-16] MEDS: Ferrous Sulfate 325 MG Tab PO SCH (08:59)
[2021-09-16] MEDS: Magnesium Oxide 400 MG Tab PO SCH (09:00)
[2021-09-16] MEDS: Clopidogrel 75 MG Tab PO SCH (09:00)
[2021-09-16] MEDS: Polyethylene Glycol 3350 Powder 17 GM Packet PO SCH (09:06)
[2021-09-16] MEDS: Gabapentin 100 MG Cap PO SCH ×3 (09:06→21:05)
[2021-09-16] MEDS: LIDOCAINE PATCH TRDERM SCH (21:58)
[2021-09-16] MEDS: diphenhydrAMINE 25 MG Cap PO PRN (22:39)
[2021-09-17] MEDS: Ipratropium 0.02% 0.5 MG/2.5 ML Neb Soln INH SCH ×4 (06:21→20:39)
[2021-09-17] MEDS: Pantoprazole 40 MG Tab.CR PO SCH ×2 (06:30→17:43)
[2021-09-17] MEDS: oxyCODONE 5 MG Tab PO PRN (06:32)
[2021-09-17] MEDS: Rosuvastatin 20 MG Tab PO SCH (08:55)
[2021-09-17] MEDS: Bumetanide 2 MG Tab PO SCH ×2 (08:56→13:45)
[2021-09-17] MEDS: Clopidogrel 75 MG Tab PO SCH (08:56)
[2021-09-17] MEDS: Tamsulosin 0.4 MG Cap.ER PO SCH (08:56)
[2021-09-17] MEDS: Magnesium Oxide 400 MG Tab PO SCH (08:56)
[2021-09-17] MEDS: Docusate Sodium 100 MG Cap PO SCH ×2 (08:56→20:39)
[2021-09-17] MEDS: Aspirin 81 MG Tab.EC PO SCH (08:56)
[2021-09-17] MEDS: Ferrous Sulfate 325 MG Tab PO SCH (08:57)
[2021-09-17] MEDS: Lidocaine 4% 1 each Patch TOP SCH (08:57)
[2021-09-17] MEDS: Polyethylene Glycol 3350 Powder 17 GM Packet PO SCH (08:58)
[2021-09-17] MEDS: Carvedilol 6.25 MG Tab PO SCH ×2 (08:59→17:43)
[2021-09-17] MEDS: Gabapentin 100 MG Cap PO SCH ×3 (09:01→20:39)
[2021-09-17] MEDS: LIDOCAINE PATCH TRDERM SCH (20:45)
[2021-09-17] MEDS: diphenhydrAMINE 25 MG Cap PO PRN (21:45)
[2021-09-18] MEDS: Ipratropium 0.02% 0.5 MG/2.5 ML Neb Soln INH SCH ×5 (06:37→20:16)
[2021-09-18] MEDS: Pantoprazole 40 MG Tab.CR PO SCH ×2 (06:38→17:44)
[2021-09-18] MEDS: Gabapentin 100 MG Cap PO SCH ×3 (08:13→20:15)
[2021-09-18] MEDS: Docusate Sodium 100 MG Cap PO SCH ×2 (08:13→20:20)
[2021-09-18] MEDS: Magnesium Oxide 400 MG Tab PO SCH (08:14)
[2021-09-18] MEDS: Tamsulosin 0.4 MG Cap.ER PO SCH (08:14)
[2021-09-18] MEDS: Polyethylene Glycol 3350 Powder 17 GM Packet PO SCH (08:14)
[2021-09-18] MEDS: Rosuvastatin 20 MG Tab PO SCH (08:14)
[2021-09-18] MEDS: Clopidogrel 75 MG Tab PO SCH (08:14)
[2021-09-18] MEDS: Carvedilol 6.25 MG Tab PO SCH ×2 (08:15→17:44)
[2021-09-18] MEDS: Bumetanide 2 MG Tab PO SCH ×2 (08:16→13:12)
[2021-09-18] MEDS: Lidocaine 4% 1 each Patch TOP SCH (08:16)
[2021-09-18] MEDS: Ferrous Sulfate 325 MG Tab PO SCH (08:17)
[2021-09-18] MEDS: oxyCODONE 5 MG Tab PO PRN (08:17)
[2021-09-18] MEDS: diphenhydrAMINE 25 MG Cap PO PRN (20:16)
[2021-09-18] MEDS: LIDOCAINE PATCH TRDERM SCH (20:17)
[2021-09-19] MEDS: Melatonin 3 MG Tab PO PRN (01:03)
[2021-09-19] MEDS: oxyCODONE 5 MG Tab PO PRN (01:03)
[2021-09-19] MEDS: Ipratropium 0.02% 0.5 MG/2.5 ML Neb Soln INH SCH ×4 (06:23→20:21)
[2021-09-19] MEDS: Pantoprazole 40 MG Tab.CR PO SCH ×2 (06:49→17:06)
[2021-09-19] MEDS: Bumetanide 2 MG Tab PO SCH ×2 (08:07→14:58)
[2021-09-19] MEDS: Carvedilol 6.25 MG Tab PO SCH ×2 (08:08→18:14)
[2021-09-19] MEDS: Docusate Sodium 100 MG Cap PO SCH ×2 (08:08→20:20)
[2021-09-19] MEDS: Ferrous Sulfate 325 MG Tab PO SCH (08:08)
[2021-09-19] MEDS: Rosuvastatin 20 MG Tab PO SCH (08:08)
[2021-09-19] MEDS: Gabapentin 100 MG Cap PO SCH ×3 (08:09→20:20)
[2021-09-19] MEDS: Magnesium Oxide 400 MG Tab PO SCH (08:09)
[2021-09-19] MEDS: Tamsulosin 0.4 MG Cap.ER PO SCH (08:09)
[2021-09-19] MEDS: Clopidogrel 75 MG Tab PO SCH (08:10)
[2021-09-19] MEDS: Lidocaine 4% 1 each Patch TOP SCH (08:10)
[2021-09-19] MEDS: Polyethylene Glycol 3350 Powder 17 GM Packet PO SCH (08:11)
[2021-09-19] MEDS: Menthol/Methyl Salicylate 85 GM Tube TOP PRN (10:07)
[2021-09-19] MEDS: diphenhydrAMINE 25 MG Cap PO PRN (20:26)
[2021-09-19] MEDS: LIDOCAINE PATCH TRDERM SCH (21:47)
[2021-09-20] MEDS: Pantoprazole 40 MG Tab.CR PO SCH ×2 (06:41→16:36)
[2021-09-20] MEDS: Ipratropium 0.02% 0.5 MG/2.5 ML Neb Soln INH SCH ×4 (06:41→21:38)
[2021-09-20] MEDS: Magnesium Oxide 400 MG Tab PO SCH (08:12)
[2021-09-20] MEDS: Rosuvastatin 20 MG Tab PO SCH (08:12)
[2021-09-20] MEDS: Gabapentin 100 MG Cap PO SCH ×3 (08:12→21:43)
[2021-09-20] MEDS: Lidocaine 4% 1 each Patch TOP SCH (08:13)
[2021-09-20] MEDS: Carvedilol 6.25 MG Tab PO SCH ×2 (08:13→17:13)
[2021-09-20] MEDS: Bumetanide 2 MG Tab PO SCH ×2 (08:13→13:00)
[2021-09-20] MEDS: Tamsulosin 0.4 MG Cap.ER PO SCH (08:13)
[2021-09-20] MEDS: Docusate Sodium 100 MG Cap PO SCH ×2 (08:13→21:38)
[2021-09-20] MEDS: Ferrous Sulfate 325 MG Tab PO SCH (08:13)
[2021-09-20] MEDS: Polyethylene Glycol 3350 Powder 17 GM Packet PO SCH (08:15)
[2021-09-20] MEDS ORDERED: Clopidogrel 75 MG Tab PO SCH (12:00)
[2021-09-20] MEDS: Acetaminophen 500 MG Tab PO PRN ×2 (16:36→23:58)
[2021-09-20] MEDS: LIDOCAINE PATCH TRDERM SCH (21:40)
[2021-09-20] MEDS: Menthol/Methyl Salicylate 85 GM Tube TOP PRN (21:41)
[2021-09-21 05:53] VITALS: BP 118/61; PULSE 66
[2021-09-21] MEDS: Ipratropium 0.02% 0.5 MG/2.5 ML Neb Soln INH SCH ×2 (06:01→11:23)
[2021-09-21] MEDS: Pantoprazole 40 MG Tab.CR PO SCH (06:38)
[2021-09-21] MEDS: Bumetanide 2 MG Tab PO SCH (08:05)
[2021-09-21] MEDS: Menthol/Methyl Salicylate 85 GM Tube TOP PRN (08:05)
[2021-09-21] MEDS: Docusate Sodium 100 MG Cap PO SCH (08:06)
[2021-09-21] MEDS: Ferrous Sulfate 325 MG Tab PO SCH (08:06)
[2021-09-21] MEDS: Carvedilol 6.25 MG Tab PO SCH (08:06)
[2021-09-21] MEDS: Magnesium Oxide 400 MG Tab PO SCH (08:07)
[2021-09-21] MEDS: Rosuvastatin 20 MG Tab PO SCH (08:07)
[2021-09-21] MEDS: Tamsulosin 0.4 MG Cap.ER PO SCH (08:07)
[2021-09-21] MEDS: Lidocaine 4% 1 each Patch TOP SCH (08:08)
[2021-09-21] MEDS: Polyethylene Glycol 3350 Powder 17 GM Packet PO SCH (08:10)
[2021-09-21] MEDS: Gabapentin 100 MG Cap PO SCH (08:22)
== END 2021-09-21 11:00 | disposition home health service (06) | DRG 948 ==
LOC: FB.MS 14:37
PROVIDERS: ADMIT Family Medicine; ATTEND Family Medicine
DX: R53.81 Other malaise (principal); I13.0 Hypertensive heart and chronic kidney disease with heart failure and stage 1 through stage 4 chronic kidney disease, or unspecified chronic kidney disease; R53.1 Weakness; D50.9 Iron deficiency anemia, unspecified; G47.00 Insomnia, unspecified; F10.10 Alcohol abuse, uncomplicated; I48.91 Unspecified atrial fibrillation; K21.9 Gastro-esophageal reflux disease without esophagitis; N18.2 Chronic kidney disease, stage 2 (mild); E66.9 Obesity, unspecified; K63.5 Polyp of colon; I50.9 Heart failure, unspecified; J43.9 Emphysema, unspecified; Z96.642 Presence of left artificial hip joint; Z68.36 Body mass index [BMI] 36.0-36.9, adult; Z72.0 Tobacco use; Z95.5 Presence of coronary angioplasty implant and graft; Z87.19 Personal history of other diseases of the digestive system; Z79.82 Long term (current) use of aspirin; Z79.899 Other long term (current) drug therapy; Z79.1 Long term (current) use of non-steroidal anti-inflammatories (NSAID); Z79.01 Long term (current) use of anticoagulants; Z87.01 Personal history of pneumonia (recurrent); Z95.1 Presence of aortocoronary bypass graft; Z90.89 Acquired absence of other organs; Z98.890 Other specified postprocedural states
CPT/HCPCS: 36415; 85025; 94640; 97110-GO; 97116-GP; 97161-GP; 97166-GO; 97530-GO; 97530-GP; 97535-GO; A9270-GY

== ENCOUNTER 2022-04-08 15:11 | Emergency (ER) | payer MEDICARE, OTHER ==
[2022-04-08] MEDS ORDERED: Sodium Chloride 0.9% 10 ML Syringe FLUSH PRN (15:15)
[2022-04-08 15:45] LABS: ESTIMATED GFR 48 mL/min (>60)
[2022-04-08] MEDS ORDERED: Lactated Ringers 1,000 ML IV ONE (16:07)
[2022-04-08] MEDS ORDERED: Iopamidol 755 Mg/ML 100 ML Bottle IV ONE (16:11)
[2022-04-08] MEDS ORDERED: Spironolactone 25 MG Tab PO ONE (17:46)
[2022-04-08] MEDS ORDERED: Doxycycline 100 MG Tab PO ONE (17:47)
[2022-04-08 18:08] VITALS: BP 140/75; PULSE 74
== END 2022-04-08 18:10 | disposition home or self-care (01) ==
LOC: FB.ED 15:11
DX: J40 Bronchitis, not specified as acute or chronic (principal); I48.91 Unspecified atrial fibrillation; I13.0 Hypertensive heart and chronic kidney disease with heart failure and stage 1 through stage 4 chronic kidney disease, or unspecified chronic kidney disease; N18.2 Chronic kidney disease, stage 2 (mild); I50.9 Heart failure, unspecified; E66.9 Obesity, unspecified; Z68.30 Body mass index [BMI] 30.0-30.9, adult; Z88.8 Allergy status to other drugs, medicaments and biological substances; Z79.82 Long term (current) use of aspirin; Z79.02 Long term (current) use of antithrombotics/antiplatelets; Z79.899 Other long term (current) drug therapy; Z20.822 Contact with and (suspected) exposure to COVID-19
CPT/HCPCS: 36415; 71046; 71275; 80048; 83880; 84484; 85027; 85379; 87070; 87205; 96360; 99285; A9270; J7120; Q9967; U0002

== ENCOUNTER 2023-01-04 10:03 | Emergency (ER) | payer MEDICARE, OTHER ==
[2023-01-04] MEDS ORDERED: Albuterol/Ipratropium 3.0-0.5 MG/3 ML Neb Soln NEB ONE (10:50)
[2023-01-04 11:15] LABS: BASE EXCESS ARTERIAL,POC -4 mmol/L (-2 - 3+); HCO3 ARTERIAL,POC 20 mmol/L (21-28); O2 SATURATION ARTERIAL,POC 98.3 % (94-98); PO2 ARTERIAL,POC 106 mmHg (83-108)
[2023-01-04 11:17] LABS: MEAN CORPUSCULAR HEMOGLOBIN 29.4 pg (27.0-33.3); MEAN CORPUSCULAR HGB CONC 31.7 g/dL (28.7-35.3); MEAN CORPUSCULAR VOLUME 92.6 fL (80.8-98.7); RED BLOOD CELL COUNT 1.92 x10(6)uL (3.90-5.90); RED CELL DISTRIBUTION WIDTH 17.2 % (12.4-15.0); WHITE BLOOD CELL COUNT,WBC 11.7 x10-3/uL (3.2-10.1)
[2023-01-04 11:21] LABS: HEMATOCRIT 17.7 % (38.3-50.1); HEMOGLOBIN 5.6 g/dL (12.9-17.7)
[2023-01-04 11:22] LABS: BLOOD UREA NITROGEN,BUN 57 mg/dL (7-18); CALCIUM 9.2 mg/dL (8.6-10.2); CARBON DIOXIDE,CO2 23 mmol/L (21-32); CHLORIDE,CL 105 mmol/L (100-110); CREATININE 1.2 mg/dL (0.70-1.30); ESTIMATED GFR 63 mL/min (>60); GLUCOSE RANDOM 135 mg/dL (80-116); POTASSIUM,K 4.2 mmol/L (3.5-5.3); SODIUM,NA 139 mmol/L (135-145)
[2023-01-04 11:28] LABS: A/G RATIO 1.1; ALANINE AMINOTRANSFERASE,ALT 28 U/L (12-36); ALBUMIN 3.3 g/dL (3.2-4.6); ALKALINE PHOSPHATASE 55 IU/L (56-112); ASPARTATE AMNIOTRANSFERASE,AST 17 IU/L (5-25); BILIRUBIN TOTAL 0.2 mg/dL (0.1-1.3); PROTEIN TOTAL,TP 6.4 g/dL (6.0-8.0); TROPONIN I 24.6 pg/mL (4.0-60.3)
[2023-01-04 11:34] LABS: BUN/CREATININE RATIO 47.5 (9-20)
[2023-01-04 11:35] LABS: C-REACTIVE PROTEIN < 0.2 mg/dL (0.5-0.9)
[2023-01-04 12:35] LABS: INR 1.01 (1.00-1.24); PROTHROMBIN TIME 10.4 sec (9.0-11.1)
[2023-01-04 13:34] LABS: INFLUENZA A NAA NEGATIVE (NEGATIVE); INFLUENZA B NAA NEGATIVE (NEGATIVE); RESPIRATORY SYNCYTIAL VIR NAA NEGATIVE (NEGATIVE)
[2023-01-04 13:37] LABS: CORONAVIRUS COVID-19 NAA NEGATIVE (NEGATIVE)
[2023-01-04] MEDS ORDERED: Pantoprazole 40 MG Vial IVPUSH ONE (14:00)
[2023-01-04] MEDS ORDERED: cefTRIAXone 1 GM in Sodium Chloride 0.9% 50 ML IV SCH (14:00)
[2023-01-04] MEDS ORDERED: Azithromycin 500 MG in Sodium Chloride 0.9% 250 ML IV SCH (14:00)
[2023-01-04] MEDS: Sodium Chloride 0.9% 250 ML IV SCH ×2 (14:15→18:32)
[2023-01-04] MEDS ORDERED: Ondansetron 4 MG/2 ML SDV IVPUSH ONE (19:07)
[2023-01-04] MEDS ORDERED: Furosemide 40 MG/4 ML VIAL IVPUSH ONE (19:32)
[2023-01-04] MEDS ORDERED: Morphine 4 MG/ML VIAL IVPUSH ONE (19:32)
[2023-01-04 22:44] VITALS: BP 104/71
[2023-01-05 04:28] VITALS: PULSE 95
== END 2023-01-04 20:50 ==
LOC: FB.ED 10:03
DX: J44.9 Chronic obstructive pulmonary disease, unspecified (principal); I13.0 Hypertensive heart and chronic kidney disease with heart failure and stage 1 through stage 4 chronic kidney disease, or unspecified chronic kidney disease; N18.2 Chronic kidney disease, stage 2 (mild); I50.9 Heart failure, unspecified; D63.1 Anemia in chronic kidney disease; D62 Acute posthemorrhagic anemia; I48.91 Unspecified atrial fibrillation; E66.9 Obesity, unspecified; Z88.8 Allergy status to other drugs, medicaments and biological substances; Z79.82 Long term (current) use of aspirin; Z79.02 Long term (current) use of antithrombotics/antiplatelets; Z79.899 Other long term (current) drug therapy; Z87.891 Personal history of nicotine dependence; Z20.822 Contact with and (suspected) exposure to COVID-19; Z68.36 Body mass index [BMI] 36.0-36.9, adult
CPT/HCPCS: 0241U; 36415; 36430; 71045; 80053; 82272; 82803; 84484; 84550; 85018; 85027; 85379; 85610; 86140; 86850; 86900; 86901; 86920; 86922; 87040; 93005; 94640; 96361; 96365; 96375; 99285-25; C9113; J0456; J0696; J1940; J2270; J2405; J3490; J7050; J7620; P9016

== ENCOUNTER 2024-12-09 12:54 | Emergency (ER) | payer MEDICARE, OTHER ==
[2024-12-09 13:14] LABS: BASOPHILS PERCENT AUTO 0.3 % (0.3-3.8); EOSINOPHILS ABSOLUTE AUTO 0.3 x10-3/uL (0.0-0.6); EOSINOPHILS PERCENT AUTO 4.7 % (0.1-6.8); HEMATOCRIT 40.8 % (38.3-50.1); HEMOGLOBIN 13.5 g/dL (12.9-17.7); LYMPHOCYTES ABSOLUTE AUTO 1.1 x10-3/uL (0.5-4.5); LYMPHOCYTES PERCENT AUTO 15.3 % (15.8-45.3); MEAN CORPUSCULAR HEMOGLOBIN 27.3 pg (27.0-33.3); MEAN CORPUSCULAR HGB CONC 33.1 g/dL (28.7-35.3); MEAN CORPUSCULAR VOLUME 82.4 fL (80.8-98.7); MEAN PLATELET VOLUME 8.1 fL (6.7-11.0); MONOCYTES ABSOLUTE AUTO 0.8 x10-3/uL (0.0-1.2); NEUTROPHILS ABSOLUTE AUTO 4.8 x10-3/uL (1.7-6.9); NEUTROPHILS PERCENT AUTO 67.7 % (40.3-71.8); PLATELET COUNT,PLT 203 x10(3)uL (117-477); RED BLOOD CELL COUNT 4.95 x10(6)uL (3.90-5.90); RED CELL DISTRIBUTION WIDTH 15.6 % (12.4-15.0)
[2024-12-09 13:20] LABS: BLOOD UREA NITROGEN,BUN 21 mg/dL (7-18); BUN/CREATININE RATIO 19.1 (9-20); CALCIUM 9.6 mg/dL (8.6-10.2); CARBON DIOXIDE,CO2 32 mmol/L (21-32); CHLORIDE,CL 103 mmol/L (100-110); CREATININE 1.1 mg/dL (0.70-1.30); EST CRCL DRUG DOSING (CG) 60.75 mL/min; ESTIMATED GFR 69 mL/min (>60); GLUCOSE RANDOM 92 mg/dL (80-116); POTASSIUM,K 3.7 mmol/L (3.5-5.3); SODIUM,NA 139 mmol/L (135-145)
[2024-12-09] MEDS: Albuterol/Ipratropium 3.0-0.5 MG/3 ML Neb Soln NEB ONE (13:25)
[2024-12-09 13:26] LABS: A/G RATIO 0.9; ALANINE AMINOTRANSFERASE,ALT 30 U/L (12-36); ALBUMIN 3.4 g/dL (3.2-4.6); ALKALINE PHOSPHATASE 87 IU/L (56-112); ASPARTATE AMNIOTRANSFERASE,AST 23 IU/L (5-25); BILIRUBIN TOTAL 0.5 mg/dL (0.1-1.3); PROTEIN TOTAL,TP 7.2 g/dL (6.0-8.0)
[2024-12-09 14:07] VITALS: BP 152/70; PULSE 61
== END 2024-12-09 13:55 | disposition home or self-care (01) ==
LOC: FB.ED 12:54
DX: R07.89 Other chest pain (principal); J44.9 Chronic obstructive pulmonary disease, unspecified; I11.0 Hypertensive heart disease with heart failure; I50.9 Heart failure, unspecified; I48.91 Unspecified atrial fibrillation; K21.9 Gastro-esophageal reflux disease without esophagitis; E66.9 Obesity, unspecified; Z79.82 Long term (current) use of aspirin; Z79.899 Other long term (current) drug therapy; Z79.02 Long term (current) use of antithrombotics/antiplatelets; Z88.1 Allergy status to other antibiotic agents; Z68.33 Body mass index [BMI] 33.0-33.9, adult
CPT/HCPCS: 36415; 71045; 80053; 84484; 85025; 93005; 94640; 99285; A9270